=== PATIENT | male | born 1945 | race Caucasian/White ===

== ENCOUNTER 2022-05-23 13:05 | Outpatient (RCR) | payer MEDICARE, BC, SELFPAY ==
[2022-05-23 13:41] LABS: Albumin* 4.2 g/dL (3.3-5.0)
[2022-05-23 13:44] LABS: Aspartate Amino Transferase* 20 U/L (12-35); Bilirubin Direct* 0.2 mg/dL (0.0-0.5); Bilirubin Total* 0.7 mg/dL (0.1-1.5); Total Protein* 6.9 g/dL (6.0-8.3)
[2022-05-23 13:45] LABS: Alanine Aminotransferase* 13 U/L (4-50); Alkaline Phosphatase* 87 U/L (40-150)
[2022-12-19 18:04] LABS: Basophils Absolute Auto 0.03 K/uL (0.00-0.30); Basophils Percent Auto 0.4 % (0.0-3.0); Eosinophils Absolute Auto 0.16 K/uL (0.00-0.50); Eosinophils Percent Auto 2.1 % (0.0-7.0); Hematocrit 39.5 % (37.0-53.0); Hemoglobin* 13.2 gm/dL (13.5-17.5); Immature Granulocytes Abs Auto 0.13 K/uL (0.00-0.30); Immature Granulocytes Pct Auto 1.7 %; Lymphocytes Absolute Auto 2.03 K/uL (0.90-2.90); Lymphocytes Percent Auto 27.2 % (20-44); Mean Corpuscular HGB Conc 33 gm/dL (32-36); Mean Corpuscular Hemoglobin 32 pg (26-34); Mean Corpuscular Volume 95 fL (80-100); Monocytes Percent Auto 11.8 % (0.0-11.0); Neutrophils Absolute Auto 4.22 K/uL (1.7-7.0); Neutrophils Percent Auto 56.8 % (42.0-72.0); Platelet Count* 344 K/uL (140-440); RDW Coefficient of Variation % 12.2 % (11.5-15.5); Red Blood Count 4.17 m/uL (4.30-5.90); White Blood Count* 7.45 K/uL (4.50-11.00)
[2022-12-19 18:05] LABS: Albumin* 3.5 g/dL (3.3-5.0)
[2022-12-19 18:06] LABS: Chloride* 106 mmol/L (96-114); Potassium* 4.1 mmol/L (3.6-5.1); Sodium* 138 mmol/L (135-149)
[2022-12-19 18:08] LABS: Alkaline Phosphatase* 76 U/L (40-150); Aspartate Amino Transferase* 20 U/L (12-35); Bilirubin Total* 0.6 mg/dL (0.1-1.5); Carbon Dioxide* 26 mmol/L (20-32); Creatinine* 1.1 mg/dL (0.5-1.5); Estimated Glomerular Filt Rate 68 ml/min; Slide Review Reflex No
[2022-12-19 18:09] LABS: Alanine Aminotransferase* 15 U/L (4-50); Blood Urea Nitrogen* 23 mg/dL (7-30); Calcium* 9.2 mg/dL (8.4-10.6); Glucose* 90 mg/dL (60-115); Lactate Dehydrogenase* 194 U/L (120-246)
== END 2023-05-14 23:00 | disposition home or self-care (01) ==
LOC: LAB 13:05
PROVIDERS: Internal Medicine Hematology & Oncology; PCP Internal Medicine
DX: K74.3 Primary biliary cirrhosis (principal); C85.89 Other specified types of non-Hodgkin lymphoma, extranodal and solid organ sites
CPT/HCPCS: 36415; 80053; 80076; 83615; 85025

== ENCOUNTER 2022-05-23 13:08 | Outpatient (RCR) | payer MEDICARE, BC, SELFPAY ==
[2022-05-23 13:25] LABS: Basophils Absolute Auto 0.03 K/uL (0.00-0.30); Basophils Percent Auto 0.4 % (0.0-3.0); Eosinophils Absolute Auto 0.15 K/uL (0.00-0.50); Eosinophils Percent Auto 2.2 % (0.0-7.0); Hematocrit 42.2 % (37.0-53.0); Hemoglobin* 14.5 gm/dL (13.5-17.5); Immature Granulocytes Abs Auto 0.02 K/uL (0.00-0.30); Lymphocytes Absolute Auto 1.69 K/uL (0.90-2.90); Lymphocytes Percent Auto 24.4 % (20-44); Mean Corpuscular HGB Conc 34 gm/dL (32-36); Mean Corpuscular Hemoglobin 32 pg (26-34); Mean Corpuscular Volume 93 fL (80-100); Monocytes Percent Auto 7.2 % (0.0-11.0); Neutrophils Absolute Auto 4.55 K/uL (1.7-7.0); Neutrophils Percent Auto 65.5 % (42.0-72.0); Platelet Count* 270 K/uL (140-440); RDW Coefficient of Variation % 12.3 % (11.5-15.5); Red Blood Count 4.56 m/uL (4.30-5.90); White Blood Count* 6.94 K/uL (4.50-11.00)
[2022-05-23 13:32] LABS: Slide Review Reflex No
[2022-05-23 13:42] LABS: Chloride* 105 mmol/L (96-114)
[2022-05-23 13:43] LABS: Albumin* 4.2 g/dL (3.3-5.0); Potassium* 3.9 mmol/L (3.6-5.1); Sodium* 138 mmol/L (135-149)
[2022-05-23 13:45] LABS: Bilirubin Total* 0.6 mg/dL (0.1-1.5); Carbon Dioxide* 23 mmol/L (20-32); Creatinine* 1.1 mg/dL (0.5-1.5); Estimated Glomerular Filt Rate 68 ml/min; Total Protein* 7.3 g/dL (6.0-8.3)
[2022-05-23 13:46] LABS: Alanine Aminotransferase* 13 U/L (4-50); Alkaline Phosphatase* 87 U/L (40-150); Aspartate Amino Transferase* 20 U/L (12-35); Blood Urea Nitrogen* 21 mg/dL (7-30); Calcium* 9.2 mg/dL (8.4-10.6); Glucose* 126 mg/dL (60-115); Lactate Dehydrogenase* 445 U/L (313-618)
== END 2023-05-14 23:00 | disposition home or self-care (01) ==
LOC: LAB 13:08
PROVIDERS: PCP Internal Medicine; Visit Provider Internal Medicine Hematology & Oncology
DX: K74.3 Primary biliary cirrhosis (principal)
CPT/HCPCS: 36415; 80053; 80076; 83615; 85025

== ENCOUNTER 2022-06-17 17:27 | Emergency (ER) | payer MEDICARE, BC, SELFPAY ==
[2022-06-17 17:55] VITALS: BP 152/95; PULSE 72; RESP 20; O2SAT 97; BMI 30.8
--- NOTE | 2022-06-17 18:12 | ED.NURSE ---
[facility] police department called and informed of the incident. was given the address and accounting auditor of the dog, as noted in triage note.
--- NOTE | 2022-06-17 18:16 | ED_ITS ---
HPI - Animal Bite General Time Seen by Provider: 18:16 Date Seen: 06/17/22 Chief Complaint: Animal Bite Stated Complaint: DOG BITE - RIGHT HAND, RIGHT LEG Time Seen by Provider: 06/17/22 17:29 Source: patient and RN notes reviewed Mode of arrival: ambulatory Limitations: no limitations History of Present Illness HPI narrative: This 77-year-old male who is presenting just over 7 hours after dog bite injury. This was his neighbor's dog whom he is had for 4 years, they do not know if the dog is vaccinated in did not ask. They presumed it was. Patient was unsure of his tetanus status and we did look it up, up-to-date on 05/01/2018. Patient went over to say hi and went to pet the dog and it attacked him. It bit him in the right hand, has about 3 puncture wounds there that his did clean and bandage. He has a little bit more of a wound on the back of his right calf word bedtime. They describe this as a medium dog. Police have been called and will be here to interview, we will make sure that rabies is up-to-date on this dog via please. complaint: animal bite Related Data Patient tetanus UTD: Yes (05/01/2018) Previous Rx's Medication Instructions Recorded tamsulosin 0.4 mg capsule 0.4 mg PO QDAY #90 caps 05/08/22 amoxicillin 875 mg-potassium 1 tab PO BID #14 tabs 06/17/22 clavulanate 125 mg tablet Allergies Allergy/AdvReac Type Severity Reaction Status Date / Time No Known Drug Allergies Allergy Verified 06/17/22 17:54 Review of Systems Narrative: As per HPI [facility] PFS Surgical History (Updated 05/19/22 @ 22:09 by Mulu Dominguez APRN) S/P radiation therapy Social History Smoking Status: Never smoker Do you use any of these nicotine containing products: None Second hand tobacco smoke exposure: No How often do you have a drink containing alcohol: 4 or more times a week How many standard drinks containing alcohol do you have on a typical day: 1 or 2 How often do you have six or more drinks on one occasion: Never AUDIT-C Alcohol total score: 4 Non-prescribed substance use: denies use service: No Exam Const: Vital Signs, click to edit/add: Vital Signs - 24 hr 06/17/22 17:55 Pulse Rate [Pulse Oximeter] 72 Respiratory Rate 20 Blood Pressure [Ri ght Upper Arm] 152/95 H Pulse Oximetry 97 Oxygen Delivery Me thod Room Air Documenting provider has reviewed patient's vital signs: yes Common normals: no apparent distress, oriented x3, no limitations, healthy appearing and alert Extremity: Other: Bandage removed on the right hand. He has a few puncture wounds along the medial hand, none actively bleeding, no evidence of infection. On the posterior aspect of his right calf there is a flap of skin with some purplish discoloration around the border. Given that this is an animal bite and it is over 7 hours, feel that this is best left to heal with secondary intention. We will clean the area again and I will try to Steri-Strip the wound edges is close together as possible but leaving enough area for drainage. There are some scrapes and abrasions with teeth aguilar in this area. Neuro: Common normals: oriented x3 Sensorium/orientation: alert Gait (neuro): normal gait Course Reevaluation(s) Reevaluation #1: Placed Steri-Strips and benzoin on the calf wound to bring the skin edges closer together. Again, do not feel that this should be sutured. Time: 19:07 Vital Signs Vital signs: Initial Vital Signs Temperature Source Temporal Artery Scan 06/17/22 17:55 Pulse Rate 72 06/17/22 17:55 Pulse Rhythm 06/17/22 17:55 Respiratory Rate 20 06/17/22 17:55 Blood Pressure 152/95 H 06/17/22 17:55 Blood Pressure Mean 114 06/17/22 17:55 Blood Pressure Position Supine 06/17/22 17:55 Pulse Oximetry 97 06/17/22 17:55 Oxygen Delivery Method 06/17/22 17:55 Vital Signs Pulse Rate 72 06/17/22 17:55 Respiratory Rate 20 06/17/22 17:55 Blood Pressure 152/95 H 06/17/22 17:55 Pulse Oximetry 97 06/17/22 17:55 Oxygen Delivery Method 06/17/22 17:55 Pulse Rate 72 06/17/22 17:55 Respiratory Rate 20 06/17/22 17:55 Blood Pressure 152/95 H 06/17/22 17:55 Pulse Oximetry 97 06/17/22 17:55 Oxygen Delivery Method 06/17/22 17:55 Critical Care Time Critical Care Time Critical Care Time: No Discharge Plan Discharge Clinical Impression: Dog bite Patient Disposition: Home, Self-Care Condition: Stable Instructions: Animal Bite (ED), Rabies (ED) Additional Instructions: Make sure that the dog is vaccinated against rabies, contact her neighbor when you get home. If the dog is unvaccinated, please contact us for further recommendations. Bandage wounds as needed until healing. Can use some antibiotic ointment over the wounds on the hand. Allow the Steri-Strips on the calf to fall off on their own. If any of the areas are becoming more red, swollen, painful, developed low-grade fever with any of these symptoms, start antibiotic that was sent to the pharmacy. Need to watch wound closely for infection. Animal bites can be come infected easily. There is any question about the wounds at all, please have someone look at them. Activity Level: Activity as Tolerated Prescriptions: New amoxicillin-pot clavulanate 875-125 mg tablet 1 tab PO BID Qty: 14 0RF No Action tamsulosin 0.4 mg capsule 0.4 mg PO QDAY Qty: 90 2RF Follow Up/Referrals: Estiven Smyth MD [Primary Care Provider] - Stand Alone Forms: [employer] Info Instructions
--- NOTE | 2022-06-17 19:23 | ED.NURSE ---
Wounds were irrigated with irrigation solution and wound cleanser applied. Bacitracin and non-adhesive gauze placed over open areas and punctures. Right Calf laceration approximated with steri-strips and wrapped with loose gauze.
== END 2022-06-17 19:27 | disposition home or self-care (01) ==
PROVIDERS: Emergency Provider Family Medicine; PCP Internal Medicine
DX: S81.831A Puncture wound without foreign body, right lower leg, initial encounter (principal); S61.431A Puncture wound without foreign body of right hand, initial encounter; W54.0XXA Bitten by dog, initial encounter
CPT/HCPCS: 99283; 99284

== ENCOUNTER 2022-08-17 08:13 | Outpatient (CLI) | payer MEDICARE, BC, SELFPAY ==
--- NOTE | 2022-08-17 08:15 | CRLHL7_ITS ---
For Patients: As a result of the Century Cures Act, medical imaging exams and procedure reports are released immediately into your electronic medical record. You may view this report before your referring provider. If you have questions, please contact your health care provider. INDICATION: Follow-up primary SENIOR DEVELOPER lymphoma. TECHNIQUE: Brain MRI with contrast. The following sequences were obtained: Sagittal T1 weighted sequence. DWI and ADC mapping sequences. 3D T2 and FLAIR sequences. T1 weighted post-contrast sequence(s). 15 cc of Dotarem gadolinium based contrast agent was used. COMPARISON: Brain MRI from 04/04/2022. FINDINGS: New enhancing curvilinear focus within the right posterior inferior temporal lobe, series 10/03. Enhancing lesion previously seen within the left mesial temporal lobe/amygdala has almost completely resolved. Postsurgical changes of right occipital craniotomy with subjacent surgical tract present within the superior occipital/inferior parietal region. Mild T1 shortening/hemosiderin staining, gliosis and volume loss within this region reflecting postprocedural change. No evidence of acute ischemia. Right anterior temporal and anterior inferior frontal encephalomalacia/gliosis, likely post ischemic/post treatment in etiology. Confluent FLAIR hyperintensity involving the corpus callosum splenium and peritrigonal white matter, also compatible with post treatment change. Scattered FLAIR intensities within the supratentorial white matter elsewhere, typical for chronic microvascular ischemic change. No hydrocephalus or extra-axial collections. The pituitary gland, parasellar structures and optic chiasm are normal. All the major intracranial vascular structures demonstrate normal flow-related signal. The orbital contents are normal. No calvarial or skull base marrow signal abnormality. No obstructive sinus disease. No extracranial soft tissue findings. IMPRESSION: 1. New small curvilinear enhancing lesion within the right posterior inferior temporal lobe, suspicious for a new site of active lymphoma. Other considerations include a subacute infarct or posttreatment sequela. Attention on follow-up recommended. 2. Previously seen enhancing lesion within the left anterior/medial temporal lobe has resolved. 3. Otherwise stable postsurgical/post treatment changes detailed above. Dictated by He Escalante MD @ 08/17/2022 3:37:16 PM (Electronically Signed)
== END 2022-08-17 08:14 | disposition home or self-care (01) ==
LOC: MRI 08:14
PROVIDERS: PCP Internal Medicine; Visit Provider Obstetrics & Gynecology
DX: C85.89 Other specified types of non-Hodgkin lymphoma, extranodal and solid organ sites (principal); G93.9 Disorder of brain, unspecified
CPT/HCPCS: 70553; A9575

== ENCOUNTER 2022-08-22 12:46 | Outpatient (RCR) | payer MEDICARE, BC, SELFPAY ==
[2022-08-22 13:02] LABS: Basophils Absolute Auto 0.03 K/uL (0.00-0.30); Basophils Percent Auto 0.4 % (0.0-3.0); Eosinophils Absolute Auto 0.13 K/uL (0.00-0.50); Eosinophils Percent Auto 1.8 % (0.0-7.0); Hematocrit 40.6 % (37.0-53.0); Hemoglobin* 13.7 gm/dL (13.5-17.5); Immature Granulocytes Abs Auto 0.06 K/uL (0.00-0.30); Immature Granulocytes Pct Auto 0.8 %; Lymphocytes Percent Auto 17.8 % (20-44); Mean Corpuscular HGB Conc 34 gm/dL (32-36); Mean Corpuscular Hemoglobin 32 pg (26-34); Mean Corpuscular Volume 94 fL (80-100); Monocytes Percent Auto 10.1 % (0.0-11.0); Neutrophils Absolute Auto 4.93 K/uL (1.7-7.0); Neutrophils Percent Auto 69.1 % (42.0-72.0); Platelet Count* 258 K/uL (140-440); RDW Coefficient of Variation % 12.2 % (11.5-15.5); Red Blood Count 4.32 m/uL (4.30-5.90); White Blood Count* 7.14 K/uL (4.50-11.00)
[2022-08-22 13:07] LABS: Slide Review Reflex No
== END 2022-11-19 23:59 | disposition home or self-care (01) ==
LOC: CCIC 12:46
PROVIDERS: PCP Internal Medicine; Visit Provider Internal Medicine
DX: C85.89 Other specified types of non-Hodgkin lymphoma, extranodal and solid organ sites (principal)
CPT/HCPCS: 36415; 85025

== ENCOUNTER 2023-01-18 16:03 | Outpatient (REF) | payer MEDICARE, BC, SELFPAY ==
[2023-01-18 17:20] LABS: Basophils Percent Auto 0.6 % (0.0-3.0); Eosinophils Percent Auto 3.2 % (0.0-7.0); Hematocrit 41.5 % (37.0-53.0); Hemoglobin* 13.6 gm/dL (13.5-17.5); Immature Granulocytes Pct Auto 0.6 %; Lymphocytes Percent Auto 27.4 % (20-44); Mean Corpuscular HGB Conc 33 gm/dL (32-36); Mean Corpuscular Hemoglobin 31 pg (26-34); Mean Corpuscular Volume 94 fL (80-100); Monocytes Percent Auto 12.8 % (0.0-11.0); Neutrophils Percent Auto 55.4 % (42.0-72.0); Platelet Count* 259 K/uL (140-440); RDW Coefficient of Variation % 12.6 % (11.5-15.5); White Blood Count* 8.43 K/uL (4.50-11.00)
[2023-01-18 17:21] LABS: Basophils Absolute Auto 0.05 K/uL (0.00-0.30); Eosinophils Absolute Auto 0.27 K/uL (0.00-0.50); Immature Granulocytes Abs Auto 0.05 K/uL (0.00-0.30); Lymphocytes Absolute Auto 2.31 K/uL (0.90-2.90); Neutrophils Absolute Auto 4.67 K/uL (1.7-7.0); Slide Review Reflex No
[2023-01-18 17:29] LABS: Albumin* 3.7 g/dL (3.3-5.0); Chloride* 104 mmol/L (96-114)
[2023-01-18 17:30] LABS: Potassium* 4.7 mmol/L (3.6-5.1); Sodium* 137 mmol/L (135-149)
[2023-01-18 17:32] LABS: Bilirubin Total* 0.8 mg/dL (0.1-1.5); Creatinine* 1.1 mg/dL (0.5-1.5); Estimated Glomerular Filt Rate 68 ml/min
[2023-01-18 17:33] LABS: Alanine Aminotransferase* 22 U/L (4-50); Aspartate Amino Transferase* 21 U/L (12-35); Blood Urea Nitrogen* 23 mg/dL (7-30); Calcium* 9.3 mg/dL (8.4-10.6); Carbon Dioxide* 28 mmol/L (20-32); Glucose* 98 mg/dL (60-115); Total Protein* 6.3 g/dL (6.0-8.3)
[2023-01-18 20:48] LABS: Alkaline Phosphatase* 78 U/L (40-150)
== END 2023-01-18 16:04 | disposition home or self-care (01) ==
LOC: NPINS 16:03
PROVIDERS: PCP Internal Medicine; Visit Provider Internal Medicine Hematology & Oncology
DX: C85.89 Other specified types of non-Hodgkin lymphoma, extranodal and solid organ sites (principal)
CPT/HCPCS: 80053; 85025

== ENCOUNTER 2023-04-24 18:40 | Inpatient (IN) | payer MEDICARE, BC, SELFPAY ==
[2023-04-24 18:48] VITALS: BP 160/84; PULSE 73; RESP 16; TEMP 36.6; O2SAT 96; BMI 30.3
--- NOTE | 2023-04-24 19:11 | ED_ITS ---
HPI - General Adult General Chief complaint: Altered Mental Status Stated complaint: Confusion, fatigue Time Seen by Provider: 04/24/23 19:10 History of Present Illness HPI narrative: Diagnosed with DIGITAL ADVERTISING ANALYST lymphoma several years ago. Had been on treatment for it previously. Over the last few days notes increase in confusion and sleeping much of the day . Pt wobbly walking to triage room with 's help. Pt has been staying well hydrated per his and 's report. Has MRI scheduled for Sunday this week 78-year-old man presenting to the emergency department with spouse with concern of increased weakness and generally little wobbliness, increasingly confused and sleeping a lot over the last 2 days or so. No fever. No cough or cold symptoms. No abdominal pain. No rashes. Indicates some bruising that he would associate with oral chemotherapy. No complaint of headache or visual changes. Has a history of DIGITAL ADVERTISING ANALYST lymphoma and is pending an MRI of the brain in about 8 days. Says he makes a good point to stay well-hydrated drinking lot of water over the course of the day. Spouse is concerned that maybe his lymphoma is progressing. No dysuria, no frequency. Began ibrutinib in November of this year. Related Data Home Medications Medication Instructions Recorded Confirmed amlodipine 5 mg tablet 5 mg PO DAILY 04/24/23 04/24/23 ibrutinib 560 mg tablet 560 mg PO DAILY 04/24/23 04/24/23 pantoprazole 40 mg tablet,delayed 40 mg PO DAILY 04/24/23 04/24/23 release ursodiol 500 mg tablet 500 mg PO BID 04/24/23 04/24/23 ascorbic acid (vitamin C) 500 mg 500 mg PO DAILY 04/25/23 04/25/23 tablet cholecalciferol (vitamin D3) 50 50 mcg PO DAILY 04/25/23 04/25/23 mcg (2,000 unit) tablet (Vitamin D3) fluticasone propionate 50 1 spray intranasal DAILY 04/25/23 04/25/23 mcg/actuation nasal spray,suspension (24 Hour Allergy Relief) metoprolol succinate 100 mg 100 mg PO DAILY 04/25/23 04/25/23 tablet,extended release 24 hr tamsulosin 0.4 mg capsule 0.4 mg PO DAILY 04/25/23 04/25/23 Allergies Allergy/AdvReac Type Severity Reaction Status Date / Time No Known Drug Allergies Allergy Verified 04/24/23 18:57 Review of Systems Status of ROS: Reports: 6 or more systems reviewed and unremarkable except as noted in History and below PFSH [facility] Medical History Status post stereotactic brain biopsy ?Z98.890 - Other specified postprocedural states (ICD-10) BPH (benign prostatic hyperplasia) ?N40.0 - Benign prostatic hyperplasia without lower urinary tract symptoms (ICD-10) Biliary cirrhosis ?K74.5 - Biliary cirrhosis, unspecified (ICD-10) Obesity ?E66.9 - Obesity, unspecified (ICD-10) Impairment of balance ?R26.89 - Other abnormalities of gait and mobility (ICD-10) Physical deconditioning ?R53.81 - Other malaise (ICD-10) Cognitive impairment ?R41.89 - Other symptoms and signs involving cognitive functions and awareness (ICD-10) DIGITAL ADVERTISING ANALYST lymphoma ?C85.89 - Other specified types of non-Hodgkin lymphoma, extranodal and solid organ sites (ICD-10) Surgical History H/O nasal polypectomy ?Z98.890 - Other specified postprocedural states (ICD-10) ?Z87.09 - Personal history of other diseases of the respiratory system (ICD- 10) H/O blepharoplasty ?Z98.890 - Other specified postprocedural states (ICD-10) H/O colonoscopy ?Z98.890 - Other specified postprocedural states (ICD-10) S/P radiation therapy ?Z92.3 - Personal history of irradiation (ICD-10) Family History (Updated 04/24/23 @ 22:58 by Kenji De Dios MD) Father COPD (chronic obstructive pulmonary disease) Brother Prostate cancer Other Heart disease Social History (Updated 04/24/23 @ 22:58 by Kenji De Dios MD) Narrative: He lives in [place] with his . They live in their own home. He ambulates without a walker. He does not smoke. Drinks alcohol a couple times a week. Code status is on certain at this time. 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 What is your current living situation?: I presently have a place to live Problems where you live: no known problems Problems where you live details: none In the past 12 months, utilities in danger of being shut off: no In the past 12 mos, have been you worried that your food would run out before you had money to buy more?: never true In the past 12 mos, the food you bought just didn't last and you didn't have money to buy more?: never true Smoking Status: Never smoker Do you use any of these nicotine containing products: None Second hand tobacco smoke exposure: No How often do you have a drink containing alcohol: 2-4 times a month Alcohol type: beer How many standard drinks containing alcohol do you have on a typical day: 1 or 2 How often do you have six or more drinks on one occasion: Never AUDIT-C Alcohol total score: 2 Non-prescribed substance use: denies use Caffeine: Yes (Coffee) How often does anyone, including family, friends and others, physically hurt you : never How often does anyone, including family, friends and others, insult or talk down to you: never How often does anyone, including family, friends and others, threaten you with harm: never How often does anyone, including family, friends and others, scream or curse at you: never service: No Exam Narrative: Exam Narrative: Does seem a little sleepy. Demonstrates some mild confusion. Answers questions fairly easily though. Cranial nerves 2-12 to be intact. Breathing easily. Moving all extremities without difficulty. Is well perfused. Without lower extremity edema. Head looks to be atraumatic. Lungs are clear. Does need a little assistance to the sit for that exam. Heart with regular rate and rhythm. Abdomen is soft overweight nontender. I do not appreciate masses. Skin with some light bruising most notable in forearms. Oropharynx is moist. Fissured tongue. Const: Vital Signs, click to edit/add: Vital Signs - 24 hr 04/24/23 18:48 04/24/23 21:20 Temperature 97.9 F Pulse Rate [Pulse Oximeter] 73 Respiratory Rate 16 18 Blood Pressure [Ri ght Upper Arm] 160/84 H 179/90 H Pulse Oximetry 96 99 Oxygen Delivery Me thod Room Air Room Air Documenting provider has reviewed patient's vital signs: yes Course Course Hospital Course: HOSPITALIST DISCHARGE SUMMARY ATTENDING PHYSICIAN: Bhargavi Tejada MD FINAL DIAGNOSIS: Acute hyponatremia Mild hypokalemia Mild hypo magnesemia HOSPITAL FOLLOWUP ISSUES: [facility] and radiological followup REFERRALS WHILE ADMITTED: Phone discussion with [facility] REFERRALS AFTER DISCHARGE: Outpatient PT and OT BRIEF HOSPITAL COURSE: 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 Was evaluated the emergency room on 04/24/2023 for increasing weakness, confusion. He was noted to have a sodium of 127. He had a mildly depressed potassium and magnesium as well. These were replaced and he was placed on a fluid restriction. Overnight he improved. Sodium this morning is 130. He remains pleasantly confused. PT and OT worked with him and his balance and general mobility is not great but is not overly limiting. I spoke with his oncology team this morning. We are going to dose reduce his chemotherapy to 420 mg daily from 560 mg. He will see them after his brain MRI next week. SUBSTANTIVE NOTATIONS ON IMAGING, LAB, MICROBIOLOGY/PATHOLOGY STUDIES: On admission his sodium was 127, improved to 130 Potassium 3.5, 3.5 this morning Magnesium 1.4, 1.8 this morning Slight white count without fever. Total WBC 11.2 Troponin was negative on admission as was his C reactive protein. BNP 502 Urine was reassuring. Respiratory screen negative Chest x-ray no focal consolidation, chronic fibrotic changes. DISCHARGE MEDICATIONS: See Reconciled list - SIGNIFICANT CHANGES: Dose reduction of ibrutinib 560 to 420mg PO daily. REVIEW OF SYSTEMS No new chest pain or dyspnea Pain controlled No voiding difficulties Tolerating diet challenge PHYSICAL EXAM: CONSTITUTIONAL: Pleasantly confused VITAL SIGNS: see record. HEENT: Normocephalic, atraumatic. PERRL, EOMI, conjunctivae pink, no scleral icterus. Ears and nose externally normal. Pharynx normal. NECK: No JVD. No carotid bruit, no thyromegaly, no adenopathy. CHEST: Clear to auscultation bilaterally. HEART: S1 and S2 normal. Edema ABDOMEN: Soft, nontender. Normal bowel sounds. MUSCULOSKELETAL: No gross joint deformity or swelling. NEURO: Cranial nerves intact. Grossly intact. No asymmetric findings. SKIN: No rashes, petechiae, concerning changes PSYCHIATRIC: Mood euthymic. DISPOSITION: Home with Close follow-up with [place] [facility] Time spent on discharge 37 minutes. Vital Signs Vital signs: Initial Vital Signs Temperature 97.9 F 04/24/23 18:48 Temperature Source Temporal Artery Scan 04/24/23 18:48 Pulse Rate 73 04/24/23 18:48 Respiratory Rate 16 04/24/23 18:48 Blood Pressure 160/84 H 04/24/23 18:48 Blood Pressure Mean 109 H 04/24/23 18:48 Blood Pressure Position Sitting 04/24/23 18:48 Pulse Oximetry 96 04/24/23 18:48 Oxygen Delivery Method Room Air 04/24/23 18:48 Vital Signs Temperature 97.9 F 04/24/23 18:48 Pulse Rate 73 04/24/23 18:48 Respiratory Rate 16 04/24/23 18:48 Blood Pressure 160/84 H 04/24/23 18:48 Pulse Oximetry 96 04/24/23 18:48 Oxygen Delivery Method Room Air 04/24/23 18:48 Temperature 97.9 F 04/25/23 12:52 Pulse Rate 70 04/25/23 11:23 Respiratory Rate 16 04/25/23 12:52 Blood Pressure 185/87 H 04/25/23 11:23 Pulse Oximetry 97 04/25/23 11:23 Oxygen Delivery Method Room Air 04/25/23 11:23 Medical Decision Making MDM Narrative Medical decision making narrative: Certainly could be progression of this lymphoma though I think would look further for infection or electrolyte abnormalities; might be a dilutional hyponatremia from too much water intake. Medication reaction/side effect? Initiated on IV fluids with normal saline. Chest x-ray reviewed by me in seems to show some increased interstitial markings but no infiltrative process. White count little bit elevated 11.2 neutrophilic predominance. EKG as below. Sodium is 127. Was 137 3 months ago. Urinalysis without evidence of infection. Not particularly dilute. There is 1+ urine protein and ketones. Alcohol level is negative. Clarifying water consumption, indicates that he drinks about 2 L of water daily. Uncertain progression of lunchroom mother lymphoma might be contributing. Unclear also if hyponatremia is the cause of his weakness. I did discuss this case with hospitalist considering also outpatient plan. During this conversation with Mr. Steele to discuss his options, and now with arrival of his daughter, he became tearful. Clearly preference is to stay in this hospital as opposed to outpatient. Will discuss further with hospitalist. Uncertain MRI availability tomorrow. Medical Records Medical records reviewed: Yes I reviewed the patient's medical records Lab Data Lab results reviewed: Yes I reviewed the patient's lab results Labs: Lab Results 04/24/23 04/24/23 04/24/23 Range/Units 19:35 20:09 20:37 WBC 11.20 H (4.50-11.00) K/uL RBC 4.46 (4.30-5.90) m/uL Hgb 13.8 (13.5-17.5) gm/dL Hct 40.1 (37.0-53.0) % MCV 90 (80-100) fL MCH 31 (26-34) pg MCHC 34 (32-36) gm/dL RDW Coeff of Jacque 12.3 (11.5-15.5) % Plt Count 228 (140-440) K/uL Neut % (Auto) 79.9 H (42.0-72.0) % Lymph % (Auto) 12.0 L (20-44) % Hayes % (Auto) 7.6 (0.0-11.0) % Eos % (Auto) 0.0 (0.0-7.0) % Baso % (Auto) 0.1 (0.0-3.0) % Neut # (Auto) 8.90 H (1.7-7.0) K/uL Lymph # (Auto) 1.30 (0.90-2.90) K/uL Hayes # (Auto) 0.90 (0.00-0.90) K/UL Eos # (Auto) 0.00 (0.00-0.50) K/uL Baso # (Auto) 0.00 (0.00-0.30) K/uL Abs Immat Gran (auto) 0.00 (0.00-0.30) K/uL Imm/Tot Granulo (auto) 0.4 % Sodium 127 L (135-149) mmol/L Potassium 3.5 L (3.6-5.1) mmol/L Chloride 99 (96-114) mmol/L Carbon Dioxide 22 (20-32) mmol/L BUN 22 (7-30) mg/dL Creatinine 0.9 (0.5-1.5) mg/dL Estimated Creat Clear 58.92 Estimated GFR 86 ml/min Glucose 107 (60-115) mg/dL Calcium 8.5 (8.4-10.6) mg/dL Magnesium 1.4 L (1.5-2.6) mg/dL Total Bilirubin 0.8 (0.1-1.5) mg/dL Direct Bilirubin 0.2 (0.0-0.5) mg/dL AST 19 (12-35) U/L ALT 17 (4-50) U/L Alkaline Phosphatase 66 (40-150) U/L Troponin I < 0.01 L (0.01-0.04) ng/mL C-Reactive Protein < 0.5 L (0.5-1.0) mg/dL NT-Pro-B Natriuret Pep 502 pg/mL Total Protein 5.7 L (6.0-8.3) g/dL Albumin 3.4 (3.3-5.0) g/dL Urine Color Yellow (Yellow) Urine Appearance Clear (Clear) Urine pH 5.5 (5.0-8.5) Ur Specific [place] 1.025 (1.000-1.030) Urine Protein 1+ A (Negative) Urine Glucose (UA) Negative (Negative) Urine Ketones 1+ A (Negative) Urine Blood Trace-intact A (Negative) Urine Nitrite Negative (Negative) Urine Bilirubin Negative (Negative) Urine Urobilinogen 1.0 (0.2-1.0) Ur Leukocyte Esterase Negative (Negative) Urine RBC 0-2 (0-2) Urine WBC 0-2 (0-5) Ur Squamous Epith Cells None (None-Few) Urine Bacteria None (None) Ethyl Alcohol < 0.01 L (0.01-0.03) % SARS-CoV-2 (PCR) Negative SARS-CoV-2 (Negative) Influenza Type A (PCR) Negative PCR FLU A (Negative) Influenza Type B (PCR) Negative PCR FLU B (Negative) RSV (PCR) Negative PCR RSV (Negative) 04/25/23 Range/Units 06:05 WBC (4.50-11.00) K/uL RBC (4.30-5.90) m/uL Hgb (13.5-17.5) gm/dL Hct (37.0-53.0) % MCV (80-100) fL MCH (26-34) pg MCHC (32-36) gm/dL RDW Coeff of Jacque (11.5-15.5) % Plt Count (140-440) K/uL Neut % (Auto) (42.0-72.0) % Lymph % (Auto) (20-44) % Hayes % (Auto) (0.0-11.0) % Eos % (Auto) (0.0-7.0) % Baso % (Auto) (0.0-3.0) % Neut # (Auto) (1.7-7.0) K/uL Lymph # (Auto) (0.90-2.90) K/uL Hayes # (Auto) (0.00-0.90) K/UL Eos # (Auto) (0.00-0.50) K/uL Baso # (Auto) (0.00-0.30) K/uL Abs Immat Gran (auto) (0.00-0.30) K/uL Imm/Tot Granulo (auto) % Sodium 130 L (135-149) mmol/L Potassium 3.5 L (3.6-5.1) mmol/L Chloride 102 (96-114) mmol/L Carbon Dioxide 21 (20-32) mmol/L BUN 18 (7-30) mg/dL Creatinine 0.9 (0.5-1.5) mg/dL Estimated Creat Clear 58.92 Estimated GFR 86 ml/min Glucose 127 H (60-115) mg/dL Calcium 8.5 (8.4-10.6) mg/dL Magnesium 1.8 (1.5-2.6) mg/dL Total Bilirubin (0.1-1.5) mg/dL Direct Bilirubin (0.0-0.5) mg/dL AST (12-35) U/L ALT (4-50) U/L Alkaline Phosphatase (40-150) U/L Troponin I (0.01-0.04) ng/mL C-Reactive Protein (0.5-1.0) mg/dL NT-Pro-B Natriuret Pep pg/mL Total Protein (6.0-8.3) g/dL Albumin (3.3-5.0) g/dL Urine Color (Yellow) Urine Appearance (Clear) Urine pH (5.0-8.5) Ur Specific [place] (1.000-1.030) Urine Protein (Negative) Urine Glucose (UA) (Negative) Urine Ketones (Negative) Urine Blood (Negative) Urine Nitrite (Negative) Urine Bilirubin (Negative) Urine Urobilinogen (0.2-1.0) Ur Leukocyte Esterase (Negative) Urine RBC (0-2) Urine WBC (0-5) Ur Squamous Epith Cells (None-Few) Urine Bacteria (None) Ethyl Alcohol (0.01-0.03) % SARS-CoV-2 (PCR) (Negative) Influenza Type A (PCR) (Negative) Influenza Type B (PCR) (Negative) RSV (PCR) (Negative) ECG Data Attestation: I personally reviewed and interpreted this ECG as follows: (Normal sinus rate of 66) Discharge Plan Discharge Clinical Impression: Hyponatremia, Weakness, AMS (altered mental status) Activity Level: Activity as Tolerated Discharge Diet: Regular
--- NOTE | 2023-04-24 19:25 | CRLHL7_ITS ---
For Patients: As a result of the Century Cures Act, medical imaging exams and procedure reports are released immediately into your electronic medical record. You may view this report before your referring provider. If you have questions, please contact your health care provider. INDICATION: Fatigue. TECHNIQUE: Chest 1 view(s) COMPARISON: None available. FINDINGS: Vascular port is present within the right chest wall, tip is in the lower SVC. Cardiomediastinal silhouette and pulmonary vasculature are normal. Prominence of the interstitial markings bilaterally, relatively symmetric, likely reflective of chronic fibrotic or senescent changes. Differential includes mild interstitial edema. No superimposed focal consolidation. No significant layering pleural effusion, no definite pneumothorax. No acute chest wall abnormality. IMPRESSION: 1. No focal consolidation. 2. Prominence of the interstitial markings bilaterally, likely reflective of chronic fibrotic changes. Differential includes mild interstitial edema. Dictated by Cony Reeder MD @ 04/24/2023 8:42:31 PM (Electronically Signed)
[2023-04-24] MEDS: 0.9 % SODIUM CHLORIDE 1000 ml 1,000 ML IV (20:05)
[2023-04-24 20:17] LABS: Basophils Percent Auto 0.1 % (0.0-3.0); Hematocrit 40.1 % (37.0-53.0); Hemoglobin* 13.8 gm/dL (13.5-17.5); Immature Granulocytes Pct Auto 0.4 %; Mean Corpuscular HGB Conc 34 gm/dL (32-36); Mean Corpuscular Hemoglobin 31 pg (26-34); Mean Corpuscular Volume 90 fL (80-100); Monocytes Percent Auto 7.6 % (0.0-11.0); Neutrophils Percent Auto 79.9 % (42.0-72.0); Platelet Count* 228 K/uL (140-440); RDW Coefficient of Variation % 12.3 % (11.5-15.5); Red Blood Count 4.46 m/uL (4.30-5.90)
[2023-04-24 20:23] LABS: Slide Review Reflex No
[2023-04-24 20:31] LABS: Chloride* 99 mmol/L (96-114); Potassium* 3.5 mmol/L (3.6-5.1); Sodium* 127 mmol/L (135-149)
[2023-04-24 20:34] LABS: Creatinine* 0.9 mg/dL (0.5-1.5); Est. Creatinine Clearance* 58.92; Estimated Glomerular Filt Rate 86 ml/min
[2023-04-24 20:35] LABS: Blood Urea Nitrogen* 22 mg/dL (7-30); Calcium* 8.5 mg/dL (8.4-10.6); Carbon Dioxide* 22 mmol/L (20-32); Glucose* 107 mg/dL (60-115)
[2023-04-24 20:38] LABS: C Reactive Protein* < 0.5 mg/dL (0.5-1.0)
[2023-04-24 20:44] LABS: Appearance Urine Clear (Clear); Bilirubin Urine Negative (Negative); Blood Urine Trace-intact (Negative); Color Urine Yellow (Yellow); Glucose Urine Negative (Negative); Ketones Urine 1+ (Negative); Leukocyte Esterase Urine Negative (Negative); Nitrite Urine Negative (Negative); Protein Urine 1+ (Negative); Specific Gravity Urine 1.025 (1.000-1.030); pH Urine 5.5 (5.0-8.5)
[2023-04-24 20:55] LABS: RBC Urine 0-2 (0-2); WBC Urine 0-2 (0-5)
[2023-04-24 20:56] LABS: Ethanol* < 0.01 % (0.01-0.03); Troponin I* < 0.01 ng/mL (0.01-0.04)
[2023-04-24 21:20] VITALS: BP 179/90; RESP 18; O2SAT 99
[2023-04-24 21:27] LABS: PCR FLU A Negative PCR FLU A (Negative); PCR FLU B Negative PCR FLU B (Negative); PCR RSV Negative PCR RSV (Negative)
[2023-04-24 21:42] LABS: SARS PCR* Negative SARS-CoV-2 (Negative)
[2023-04-24 21:45] LABS: Albumin* 3.4 g/dL (3.3-5.0)
[2023-04-24 21:48] LABS: Aspartate Amino Transferase* 19 U/L (12-35); Bilirubin Direct* 0.2 mg/dL (0.0-0.5); Bilirubin Total* 0.8 mg/dL (0.1-1.5); Magnesium* 1.4 mg/dL (1.5-2.6); Total Protein* 5.7 g/dL (6.0-8.3)
[2023-04-24 21:49] LABS: Alanine Aminotransferase* 17 U/L (4-50); Alkaline Phosphatase* 66 U/L (40-150)
[2023-04-24 22:04] LABS: NT Pro B Type NatriureticPept* 502 pg/mL
--- NOTE | 2023-04-24 22:05 | P.IMHP_ITS ---
Hospitalist- H&P: HPI History of Present Illness Date Seen: 04/24/23 Chief complaint: Confusion, fatigue Narrative: Luis Steele is a 78 year old male with UPHOLSTERY TECHNICIAN lymphoma, biliary cirrhosis, hypertension and BPH admitted through the emergency department with recent increase in weakness and confusion. Family is noted he is sleeping a lot over last 2 days. He has had acute on chronic decline with more forgetfulness and confusion. He is weaker and more unsteady on his feet. He has not had a fall or head injury. He does not use assistive device when he walks. He does tell me that he is walking less because he is concerned he will get lost when he is out for a walk. He is quite aware of his forgetfulness. He has UPHOLSTERY TECHNICIAN lymphoma which has been treated with radiation and chemotherapy with methotrexate and now ibrutinib. MRI of the brain done February 24 suggests progression of the disease. Repeat MRI is due next week. Review of Systems Narrative: Patient reports no other recent illness or injury. Specifically denies headache, cold, cough, sore throat, shortness of breath, chest pain, abdominal pain, nausea, vomiting, diarrhea, constipation, blood in the stool, urinary problems, focal weakness or numbness or visual disturbance. [facility] Medical History Status post stereotactic brain biopsy ?Z98.890 - Other specified postprocedural states (ICD-10) BPH (benign prostatic hyperplasia) ?N40.0 - Benign prostatic hyperplasia without lower urinary tract symptoms (ICD-10) Biliary cirrhosis ?K74.5 - Biliary cirrhosis, unspecified (ICD-10) Obesity ?E66.9 - Obesity, unspecified (ICD-10) Impairment of balance ?R26.89 - Other abnormalities of gait and mobility (ICD-10) Physical deconditioning ?R53.81 - Other malaise (ICD-10) Cognitive impairment ?R41.89 - Other symptoms and signs involving cognitive functions and a wareness (ICD-10) UPHOLSTERY TECHNICIAN lymphoma ?C85.89 - Other specified types of non-Hodgkin lymphoma, extranodal and solid organ sites (ICD-10) Surgical History H/O nasal polypectomy ?Z98.890 - Other specified postprocedural states (ICD-10) ?Z87.09 - Personal history of other diseases of the respiratory system (ICD- 10) H/O blepharoplasty ?Z98.890 - Other specified postprocedural states (ICD-10) H/O colonoscopy ?Z98.890 - Other specified postprocedural states (ICD-10) S/P radiation therapy ?Z92.3 - Personal history of irradiation (ICD-10) Family History (Updated 04/24/23 @ 22:58 by Kenji De Dios MD) Father COPD (chronic obstructive pulmonary disease) Brother Prostate cancer Other Heart disease Social History (Updated 04/24/23 @ 22:58 by Kenji De Dios MD) Narrative: He lives in [place] with his . They live in their own home. He ambulates without a walker. He does not smoke. Drinks alcohol a couple times a week. Code status is on certain at this time. is healthcare power of workers compensation attorney. Smoking Status: Never smoker Do you use any of these nicotine containing products: None Second hand tobacco smoke exposure: No How often do you have a drink containing alcohol: 4 or more times a week How many standard drinks containing alcohol do you have on a typical day: 1 or 2 How often do you have six or more drinks on one occasion: Never AUDIT-C Alcohol total score: 4 Non-prescribed substance use: denies use service: No Meds Home Medications and Allergies Home Medications Medication Instructions Recorded Confirmed Type amlodipine 5 mg tablet 5 mg PO DAILY 04/24/23 04/24/23 History ibrutinib 560 mg tablet 560 mg PO DAILY 04/24/23 04/24/23 History pantoprazole 40 mg tablet,delayed 40 mg PO DAILY 04/24/23 04/24/23 History release ursodiol 500 mg tablet 500 mg PO BID 04/24/23 04/24/23 History Home Medication Comments: helps set up and administer medicines Allergies Allergy/AdvReac Type Severity Reaction Status Date / Time No Known Drug Allergies Allergy Verified 04/24/23 18:57 Exam Narrative: Exam Narrative: He is alert and appears in no distress. Speech is normal. He struggles to answer simple questions. He struggles to remember significant portions of his past medical history. Head is without trauma. Eyes normal. Extraocular movements are full. Visual reed are intact. There is no facial asymmetry. Oropharynx is normal. Tongue is midline. Neck is supple without mass or adenopathy. Respirations are clear to auscultation. Cardiovascular: S1, S2, regular rate and rhythm. No murmur gallop or rub. Abdomen: Bowel sounds active. Abdomen is soft without tenderness or mass. External genitalia normal. Upper extremities are normal with good pulses and intact sensation. 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 Lower extremity examination shows he has some edema. Intact pedal pulses. Strength testing shows 5/5 strength in hip flexion, knee flexion and extension, ankle dorsiflexion and plantar flexion. [id number] and heel- lovelace testing is normal. Const: Vital Signs, click to edit/add: Vital Signs - 24 hr 04/24/23 18:48 04/24/23 21:20 Temperature 97.9 F Pulse Rate [Pulse Oximeter] 73 Respiratory Rate 16 18 Blood Pressure [Ri ght Upper Arm] 160/84 H 179/90 H Pulse Oximetry 96 99 Oxygen Delivery Me thod Room Air Room Air Documenting provider has reviewed patient's vital signs: yes Hospitalist - H&P: Result Labs Labs: Short CBC 04/24/23 Range/Units 20:09 WBC 11.20 H (4.50-11.00) K/uL Hgb 13.8 (13.5-17.5) gm/dL Hct 40.1 (37.0-53.0) % Plt Count 228 (140-440) K/uL BMP 04/24/23 20:09 Sodium 127 L Potassium 3.5 L Chloride 99 Carbon Dioxide 22 BUN 22 Creatinine 0.9 Glucose 107 Calcium 8.5 Cardiac Enzymes 04/24/23 Range/Units 20:09 Troponin I < 0.01 L (0.01-0.04) ng/mL Liver Function 04/24/23 Range/Units 20:09 Total Bilirubin 0.8 (0.1-1.5) mg/dL Direct Bilirubin 0.2 (0.0-0.5) mg/dL AST 19 (12-35) U/L ALT 17 (4-50) U/L Alkaline Phosphatase 66 (40-150) U/L Albumin 3.4 (3.3-5.0) g/dL Urine 04/24/23 Range/Units 20:37 Urine Color Yellow (Yellow) Urine Appearance Clear (Clear) Urine pH 5.5 (5.0-8.5) Ur Specific [place] 1.025 (1.000-1.030) Urine Protein 1+ A (Negative) Urine Glucose (UA) Negative (Negative) Assessment and Plan Assessment and plan (1) Hyponatremia: Problem comment: Typically has a normal sodium but tonight is 127. He has been drinking extra water because he thinks it helps his weakness in his legs when he wakes up in the morning. Plan is to reduce free water intake and monitor sodium. Can be a side effect of ibrutinib as well as UPHOLSTERY TECHNICIAN lymphoma. Status: Acute (2) Weakness: Problem comment: Patient describes weakness though I think this is mostly deconditioning. I did not find focal weakness. I am also concerned about apraxia and balance. Therapy to assess Status: Acute (3) Cognitive impairment: Problem comment: I am most concerned about cognitive impairment. This appears to be affecting most aspects of his life and function as well as his . Will evaluate with [place]. Status: Acute (4) Physical deconditioning: Problem comment: Progressively more sedentary and deconditioned due to fear of getting lost or fear of falling Status: Acute (5) Impairment of balance: Status: Acute (6) UPHOLSTERY TECHNICIAN lymphoma: Problem comment: Diagnosed about 2-3 years ago. Treated with radiation and methotrexate. Now treatment with ibrutinib. Treatment by Dr. Jabier Harkins of [facility] Status: Acute (7) Hypertension: Problem comment: Blood pressure is elevated today. Status: Acute Plan Patient is admitted for evaluation of above problems and assessment for ability to return home safely with his . Total time spent today is 70 minutes, 50 minutes in coordination of care and discussing with patient and his daughter and other providers ongoing evaluation management of cognitive decline and functional decline.
--- NOTE | 2023-04-24 22:54 | PC.NURSE ---
report to Cheyenne COTTRELL on med/surg. patient brought to med/surg accompanied by daughter, belongings sent with patient
[2023-04-24 23:00] VITALS: BP 149/79; PULSE 65; RESP 18; TEMP 37; O2SAT 94
[2023-04-25] MEDS: METOPROLOL SUCCINATE (XL) 100 MG TAB PO ×2 (00:04→08:56)
[2023-04-25] MEDS: POTASSIUM BICARB 25 MEQ EFFERVESCENT TAB PO (00:04)
[2023-04-25] MEDS: TAMSULOSIN HCL 0.4 MG CAPSULE PO ×2 (00:04→08:56)
[2023-04-25] MEDS: 0.9 % SODIUM CHLORIDE 1000 ml 1,000 ML IV (00:38)
[2023-04-25] MEDS: MAGNESIUM IV 2 GM/50 ML PIGGYBACK IVPB (00:57)
[2023-04-25 03:10] VITALS: BP 154/74; PULSE 62; RESP 16; TEMP 37.2; O2SAT 95
[2023-04-25 06:43] LABS: Chloride* 102 mmol/L (96-114); Potassium* 3.5 mmol/L (3.6-5.1); Sodium* 130 mmol/L (135-149)
[2023-04-25 06:46] LABS: Blood Urea Nitrogen* 18 mg/dL (7-30); Calcium* 8.5 mg/dL (8.4-10.6); Carbon Dioxide* 21 mmol/L (20-32); Creatinine* 0.9 mg/dL (0.5-1.5); Est. Creatinine Clearance* 58.92; Estimated Glomerular Filt Rate 86 ml/min; Glucose* 127 mg/dL (60-115)
[2023-04-25 07:20] VITALS: BP 167/80; PULSE 67; RESP 18; TEMP 37.6; O2SAT 96
--- NOTE | 2023-04-25 07:36 | PC.NURSE ---
Pt is oriented to self only but is easily reoriented and pt is aware of his forgetfulness.?Pleasant and cooperative. Afebrile. Pt denies pain,?chest pain, SOB, and N/V. Pt is tolerating a regular diet and a 1500cc fluid restriction. Pt voided x 8 times throughout night voiding around 100-250 each time, bladder scan showed 230 ml which pt voided 250?ml after bladder scan. Pt is up with SBA with gait belt and walker. Pt slept throughout most of night.??
[2023-04-25 07:43] LABS: Magnesium* 1.8 mg/dL (1.5-2.6)
[2023-04-25] MEDS: SODIUM CHLORIDE 0.9 % (FLUSH) 10 ML SYRINGE 5 ML IVF (08:55)
[2023-04-25] MEDS: OMEPRAZOLE 20 MG CAPSULE DR 40 MG PO (08:56)
[2023-04-25] MEDS: AMLODIPINE 5 MG TABLET PO (08:56)
[2023-04-25] MEDS: ursodioL 300 MG CAPSULE PO (09:33)
--- NOTE | 2023-04-25 10:29 | P.DS_ITS ---
DS: Providers Provider Date Seen: 04/25/23 Date of admission: 04/25/23 09:00 Primary care physician: Silvestre Kennedy MD Admitting Clinician: Kenji De Dios MD Consults: 04/24/23 22:09 Consult to Occupational Therapy [CONS] Routine Comment: Reason(s) for OT Consult:: Evaluate and Treat Any Restrictions?:: No Restrictions Comment: Waterflow Consult to Physical Therapy [CONS] Routine Comment: Reason(s) for PT Consult:: Evaluate and Treat Any Restrictions?:: No Restrictions Consult to Relief Man [CONS] Routine Comment: Reason for Consult:: Discharge Planning Needs 04/25/23 04:21 Consult to Physical Therapy [CONS] Routine Comment: Reason(s) for PT Consult:: Evaluate and Treat Any Restrictions?:: No Restrictions Attending Physician on discharge: [facility] Date [facility] Discharge: 04/25/23 DS: Diagnosis Discharge Diagnosis (1) BARREL POLISHER INSIDE lymphoma: Status: Acute Problem details: Diagnosed about 2-3 years ago. Treated with radiation and methotrexate. Now treatment with ibrutinib. Treatment by Dr. Jabier Harkins of [facility] -spoke with Rosita Harkins's office - will dose reduce the ibrutinib (orally dosed) from 560mg to 420mg daily -outpatient f/u with oncology and f/u MR brain planned for coming days. (2) Impairment of balance: Status: Acute Problem details: acute issues (hyponatremia, hypomagnesemia) resolved. PT/OT evaluation. will recommend outpatient evaluation with PT/OT likely secondary to ongoing BARREL POLISHER INSIDE malignancy (3) Physical deconditioning: Status: Acute Problem details: Progressively more sedentary and deconditioned due to malignancy (4) Cognitive impairment: Status: Acute Problem details: cognitive impairment not new. is bedside and seems to feel this is baseline. (5) Hyponatremia: Status: Acute Problem details: improved to 130 this am. continued general fluid restrictions, but not strict. monitor as outpatient. DS: Summary Hospital Course Hospital Course: HOSPITALIST DISCHARGE SUMMARY ATTENDING PHYSICIAN: Bhargavi Tejada MD FINAL DIAGNOSIS: Acute hyponatremia Mild hypokalemia Mild hypo magnesemia HOSPITAL FOLLOWUP ISSUES: [facility] clinic and radiological followup REFERRALS WHILE ADMITTED: Phone discussion with [facility] REFERRALS AFTER DISCHARGE: Outpatient PT and OT BRIEF HOSPITAL COURSE: Arpan has a progressive BARREL POLISHER INSIDE lymphoma that is currently being treated with ibrutinib. Was evaluated the emergency room on 04/24/2023 for increasing weakness, confusion. He was noted to have a sodium of 127. He had a mildly depressed potassium and magnesium as well. These were replaced and he was placed on a fluid restriction. Overnight he improved. Sodium this morning is 130. He remains pleasantly confused. PT and OT worked with him and his balance and general mobility is not great but is not overly limiting. I spoke with his oncology team this morning. We are going to dose reduce his chemotherapy to 420 mg daily from 560 mg. He will see them after his brain MRI next week. SUBSTANTIVE NOTATIONS ON IMAGING, LAB, MICROBIOLOGY/PATHOLOGY STUDIES: On admission his sodium was 127, improved to 130 Potassium 3.5, 3.5 this morning Magnesium 1.4, 1.8 this morning Slight white count without fever. Total WBC 11.2 Troponin was negative on admission as was his C reactive protein. BNP 502 Urine was reassuring. Respiratory screen negative Chest x-ray no focal consolidation, chronic fibrotic changes. DISCHARGE MEDICATIONS: See Reconciled list - SIGNIFICANT CHANGES: Dose reduction of ibrutinib 560 to 420mg PO daily. REVIEW OF SYSTEMS No new chest pain or dyspnea Pain controlled No voiding difficulties Tolerating diet challenge PHYSICAL EXAM: CONSTITUTIONAL: Pleasantly confused VITAL SIGNS: see record. HEENT: Normocephalic, atraumatic. PERRL, EOMI, conjunctivae pink, no scleral i cterus. Ears and nose externally normal. Pharynx normal. NECK: No JVD. No carotid bruit, no thyromegaly, no adenopathy. CHEST: Clear to auscultation bilaterally. HEART: S1 and S2 normal. Edema ABDOMEN: Soft, nontender. Normal bowel sounds. MUSCULOSKELETAL: No gross joint deformity or swelling. NEURO: Cranial nerves intact. Grossly intact. No asymmetric findings. SKIN: No rashes, petechiae, concerning changes PSYCHIATRIC: Mood euthymic. DISPOSITION: Home with Close follow-up with [facility] Time spent on discharge 37 minutes. Status at Discharge Functional status at discharge: uses cane/walker Overall status at discharge: patient is progressing back to baseline Time Spent with Patient Time attestation: Total time spent providing and/or coordinating discharge services: Time spent: Greater than 30 minutes Exam Const: Vital Signs, click to edit/add: Vital Signs - 24 hr 04/24/23 18:48 04/24/23 21:20 04/24/23 23:00 Temperature 97.9 F 98.6 F Pulse Rate [Pulse Oximeter] 73 65 Respiratory Rate 16 18 18 Blood Pressure [Le ft Arm] 149/79 H Blood Pressure [Ri ght Upper Arm] 160/84 H 179/90 H Pulse Oximetry 96 99 94 Oxygen Delivery Me thod Room Air Room Air Room Air 04/24/23 23:00 04/24/23 23:00 04/25/23 03:10 Temperature 98.6 F 98.9 F Pulse Rate [Pulse Oximeter] 65 62 Respiratory Rate 18 18 16 Blood Pressure [Le ft Arm] 149/79 H 154/74 H Blood Pressure [Ri ght Upper Arm] Pulse Oximetry 94 94 95 Oxygen Delivery Me thod Room Air Room Air Room Air 04/25/23 07:20 04/25/23 07:20 Temperature 99.7 F H Pulse Rate [Pulse Oximeter] 67 Respiratory Rate 18 18 Blood Pressure [Le ft Arm] 167/80 H Blood Pressure [Ri ght Upper Arm] Pulse Oximetry 96 Oxygen Delivery Me thod Room Air DS: Data Data Completed and Pending Labs on day of discharge: Labs from last 24 hours 04/25/23 04/24/23 04/24/23 06:05 20:37 20:09 WBC 11.20 H RBC 4.46 Hgb 13.8 Hct 40.1 MCV 90 MCH 31 MCHC 34 RDW Coeff of Jacque 12.3 Plt Count 228 Neut % (Auto) 79.9 H Lymph % (Auto) 12.0 L [place] % (Auto) 7.6 Eos % (Auto) 0.0 Baso % (Auto) 0.1 Neut # (Auto) 8.90 H Lymph # (Auto) 1.30 [place] # (Auto) 0.90 Eos # (Auto) 0.00 Baso # (Auto) 0.00 Abs Immat Gran (auto) 0.00 Imm/Tot Granulo (auto) 0.4 Sodium 130 L 127 L Potassium 3.5 L 3.5 L Chloride 102 99 Carbon Dioxide 21 22 BUN 18 22 Creatinine 0.9 0.9 Estimated Creat Clear 58.92 58.92 Estimated GFR 86 86 Glucose 127 H 107 Calcium 8.5 8.5 Magnesium 1.8 1.4 L Total Bilirubin 0.8 Direct Bilirubin 0.2 AST 19 ALT 17 Alkaline Phosphatase 66 Troponin I < 0.01 L C-Reactive Protein < 0.5 L NT-Pro-B Natriuret Pep 502 Total Protein 5.7 L Albumin 3.4 Urine Color Yellow Urine Appearance Clear Urine pH 5.5 Ur Specific [place] 1.025 Urine Protein 1+ A Urine Glucose (UA) Negative Urine Ketones 1+ A Urine Blood Trace-intact A Urine Nitrite Negative Urine Bilirubin Negative Urine Urobilinogen 1.0 Ur Leukocyte Esterase Negative Urine RBC 0-2 Urine WBC 0-2 Ur Squamous Epith Cells None Urine Bacteria None Ethyl Alcohol < 0.01 L SARS-CoV-2 (PCR) Influenza Type A (PCR) Influenza Type B (PCR) RSV (PCR) 04/24/23 19:35 WBC RBC Hgb Hct MCV MCH MCHC RDW Coeff of Jacque Plt Count Neut % (Auto) Lymph % (Auto) [place] % (Auto) Eos % (Auto) Baso % (Auto) Neut # (Auto) Lymph # (Auto) [place] # (Auto) Eos # (Auto) Baso # (Auto) Abs Immat Gran (auto) Imm/Tot Granulo (auto) Sodium Potassium Chloride Carbon Dioxide BUN Creatinine Estimated Creat Clear Estimated GFR Glucose Calcium Magnesium Total Bilirubin Direct Bilirubin AST ALT Alkaline Phosphatase Troponin I C-Reactive Protein NT-Pro-B Natriuret Pep Total Protein Albumin Urine Color Urine Appearance Urine pH Ur Specific [place] Urine Protein Urine Glucose (UA) Urine Ketones Urine Blood Urine Nitrite Urine Bilirubin Urine Urobilinogen Ur Leukocyte Esterase Urine RBC Urine WBC Ur Squamous Epith Cells Urine Bacteria Ethyl Alcohol SARS-CoV-2 (PCR) Negative SARS-CoV-2 Influenza Type A (PCR) Negative PCR FLU A Influenza Type B (PCR) Negative PCR FLU B RSV (PCR) Negative PCR RSV Discharge Plan Discharge Disposition: Home w/ Parent or Adult Date of Admission: 04/25/23 09:00 Attending Provider on Discharge: Bhargavi Tejada Primary Care Provider: Silvestre Kennedy Anticipated Discharge Date/Time: 04/25/23 12:03 Discharge Medications: Continued amlodipine 5 mg tablet 5 mg PO DAILY pantoprazole 40 mg tablet,delayed release (DR/EC) 40 mg PO DAILY ursodiol 500 mg tablet 500 mg PO BID ascorbic acid (vitamin C) 500 mg tablet 500 mg PO DAILY cholecalciferol (vitamin D3) [Vitamin D3] 50 mcg (2,000 unit) tablet 50 mcg PO DAILY fluticasone propionate [24 Hour Allergy Relief] 50 mcg/actuation spray,suspension 1 spray intranasal DAILY Rx Instructions: administer into each nostril metoprolol succinate 100 mg tablet extended release 24 hr 100 mg PO DAILY tamsulosin 0.4 mg capsule 0.4 mg PO DAILY Held ibrutinib 560 mg tablet 560 mg PO DAILY Hold Instructions: Resume on 05/09/23. stop this dose. Hold this medication until you picker feeder the new dose, 420mg from your pharmacy. Discharge Orders: Discharge Order (Routine); Ordered 04/25/23 Ordered By: Bhargavi Tejada Additional Instructions: I spoke with Dr. Harkins and his nurse Rosita today. They are aware that you were in the hospital and I went over the electrolyte abnormalities and our findings. They are comfortable with you discharging home as well. We agreed on a dose reduction of the ibrutinib to 420 mg daily. A new prescription is being sent to your pharmacy and it sounds as if this will be a combination of 3 pills to make 420 mg. Hold any dosing of the ibrutinib until you get the new script. Activity Level: Activity as Tolerated Discharge Diet: Regular Follow Up Appointments: [facility] [Provider Group] (keep MRI appt Dr. Harkins and Rosita both know you were here and I spoke with both of them. ) Forms: [employer] Info Instructions
[2023-04-25 11:23] VITALS: BP 185/87; PULSE 70; RESP 16; TEMP 36.6; O2SAT 97
[2023-04-25] MEDS: HEPARIN 500 UNIT/5 ML SYRINGE IVF (12:37)
[2023-04-25 12:52] VITALS: RESP 16; TEMP 36.6
--- NOTE | 2023-04-25 13:49 | PC.NURSE ---
Discharge. pt has been pleasant. he is alert to self only. he is reoriented and follows directions. and pt is aware of his forgetfulness.?he is SAMISH Afebrile. Pt denies pain, Pt is tolerating a regular diet and a 1500cc fluid restriction. he is eating, drinking and voiding. SL and Port are patent. He is up with SBA with gait belt, he does not like the walker. is here. PT and OT worked with him. went over discharge with . went over medications, appointments, education and instructions. SL was d/c and post was flushed/heparinized and d/c went over personal belonging sheet. offered a w/c ride out and but declined. they took all belongings and paperwork with them
== END 2023-04-25 13:25 | disposition home or self-care (01) | DRG 841 ==
LOC: ED 19:48 → MEDSURG 22:46
PROVIDERS: Admitting Provider Family Medicine; Emergency Provider Family Medicine; PCP Family Medicine; Visit Provider Family Medicine
DX: C85.89 Other specified types of non-Hodgkin lymphoma, extranodal and solid organ sites (principal); E87.1 Hypo-osmolality and hyponatremia; R53.1 Weakness; I10 Essential (primary) hypertension; G31.84 Mild cognitive impairment of uncertain or unknown etiology; E87.6 Hypokalemia; E83.42 Hypomagnesemia; R26.89 Other abnormalities of gait and mobility; N40.0 Benign prostatic hyperplasia without lower urinary tract symptoms; K74.5 Biliary cirrhosis, unspecified
CPT/HCPCS: 36415; 51798; 71045; 80048; 80076; 81001; 82077; 83735; 83880; 84484; 85025; 86140; 87631; 93005; 97116; 97161; 97166; 97535; 99284; 99285; A9270; G0378; J1642; J3475; J7030

== ENCOUNTER 2023-05-02 08:58 | Outpatient (CLI) | payer MEDICARE, BC, SELFPAY ==
--- NOTE | 2023-05-02 09:15 | CRLHL7_ITS ---
For Patients: As a result of the Century Cures Act, medical imaging exams and procedure reports are released immediately into your electronic medical record. You may view this report before your referring provider. If you have questions, please contact your health care provider. Indication: Follow-up TAPPER OPERATOR lymphoma. Technique: T1 sagittal as well as diffusion, FLAIR and T2 axial sequences were obtained. Post gadolinium T1 sequences were obtained. Contrast: 15 cc DOTAREM Comparison: 02/23/2023 Findings: There is a large multi lobulated oval enhancing mass in the right posterior medial temporal and anterior occipital regions, measuring 49 mm. A 2nd enhancing mass is seen in the right superior temporal region, measuring 41 mm in greatest dimension. Only small foci of irregular and nodular enhancement were seen in both of these locations on 02/23/2023. The left temporal occipital region shows tiny foci of hemorrhage or calcification. These findings are typical for recurrent TAPPER OPERATOR lymphoma. There is considerable surrounding vasogenic edema and localized mass effect including some protrusion of the posterior mesial temporal parenchyma over the free margin of the tentorium, new from the previous study. There is an 11 mm focus of abnormal cortical signal along the parasagittal left posterior frontal region (series 6 FLAIR axial image 26). Although there is no associated abnormal gadolinium enhancement, the finding could also represent lymphoma. Abnormal T2 signal and hemosiderin deposition are seen in the parasagittal right occipital lobe compatible with previously treated tumor. Chronic encephalomalacia and gliosis in the right temporal pole region, unchanged. No ventricular obstruction. No space-occupying hemorrhage. No evidence for acute infarct. Grossly normal flow voids are maintained in the directly imaged intracranial vascular structures. The craniovertebral junction is unremarkable, with a patent foramen magnum. Opacified air cells are seen in the left mastoid, new from 02/23/2023. The right temporal bone remains well aerated. There is slight membrane thickening scattered in the paranasal sinuses. I called Dr. Bunch and discussed these findings on 05/04/2023 at 0830 hours. Impression: 1. 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 Considerable surrounding vasogenic edema and localized mass effect, with early parenchymal herniation over the free margin of the tentorium. 2. There is a new 11 mm focus of nonenhancing cortical signal abnormality in the parasagittal left posterior frontal region. This could also represent recurrent tumor. 3. No present ventricular obstruction. Dictated by Case Singh MD @ 05/04/2023 8:34:40 AM (Electronically Signed)
== END 2023-05-02 08:59 | disposition home or self-care (01) ==
LOC: MRI 08:59
PROVIDERS: PCP Family Medicine; Visit Provider Radiology Radiation Oncology
DX: C85.89 Other specified types of non-Hodgkin lymphoma, extranodal and solid organ sites (principal); G93.9 Disorder of brain, unspecified
CPT/HCPCS: 36415; 70553; 80053; 83615; 85025; A9575

== ENCOUNTER 2023-05-16 13:45 | Outpatient (CLI) | payer MEDICARE, BC, SELFPAY ==
[2023-05-16 14:09] LABS: Hematocrit 44.1 % (37.0-53.0); Hemoglobin* 14.8 gm/dL (13.5-17.5); Immature Granulocytes Pct Auto 4.3 %; Mean Corpuscular HGB Conc 34 gm/dL (32-36); Mean Corpuscular Hemoglobin 31 pg (26-34); Mean Corpuscular Volume 93 fL (80-100); Monocytes Percent Auto 4.3 % (0.0-11.0); Neutrophils Percent Auto 85.4 % (42.0-72.0); Platelet Count* 240 K/uL (140-440); RDW Coefficient of Variation % 13.6 % (11.5-15.5); Red Blood Count 4.73 m/uL (4.30-5.90); White Blood Count* 12.65 K/uL (4.50-11.00)
[2023-05-16 14:16] LABS: Slide Review Reflex Yes
[2023-05-16 22:48] LABS: Slide Review Acceptable Review (Acceptable)
== END 2023-05-16 13:46 | disposition home or self-care (01) ==
PROVIDERS: PCP Family Medicine; Visit Provider Internal Medicine Hematology & Oncology
DX: C85.89 Other specified types of non-Hodgkin lymphoma, extranodal and solid organ sites (principal); Z92.21 Personal history of antineoplastic chemotherapy
CPT/HCPCS: 36415; 85025

== ENCOUNTER 2023-06-05 15:40 | Outpatient (CLI) | payer MEDICARE, BC, SELFPAY ==
--- NOTE | 2023-06-05 16:00 | CRLHL7_ITS ---
For Patients: As a result of the Century Cures Act, medical imaging exams and procedure reports are released immediately into your electronic medical record. You may view this report before your referring provider. If you have questions, please contact your health care provider. INDICATION: Localized edema, current chemo/radiation treatment. COMPARISON: None. TECHNIQUE: A compression venous ultrasound exam was performed of the left upper extremity using mendez-scale imaging, color Doppler, and spectral Doppler analysis. FINDINGS: Sonographic imaging of the left upper extremity demonstrates normal compressibility and color Doppler venous blood flow within the internal jugular, innominate, subclavian, axillary, brachial, basilic, cephalic, radial, and ulnar veins. IMPRESSION: Negative for acute DVT in the left upper extremity. Dictated by Namrata Chaney MD @ 06/06/2023 12:48:46 AM (Electronically Signed)
== END 2023-06-05 15:41 | disposition home or self-care (01) ==
LOC: US 15:42
PROVIDERS: PCP Family Medicine; Visit Provider Nurse Practitioner Adult Health
DX: R60.0 Localized edema (principal)
CPT/HCPCS: 93971

== ENCOUNTER 2023-06-12 09:38 | Outpatient (CLI) | payer MEDICARE, BC, SELFPAY ==
[2023-06-12 10:23] LABS: Hematocrit 43.2 % (37.0-53.0); Hemoglobin* 14.5 gm/dL (13.5-17.5); Mean Corpuscular HGB Conc 34 gm/dL (32-36); Mean Corpuscular Hemoglobin 32 pg (26-34); Mean Corpuscular Volume 94 fL (80-100); Platelet Count* 247 K/uL (140-440); Red Blood Count 4.59 m/uL (4.30-5.90); White Blood Count* 7.37 K/uL (4.50-11.00)
[2023-06-12 10:26] LABS: Slide Review Reflex Yes
[2023-06-12 10:27] LABS: Creatinine* 1.1 mg/dL (0.5-1.5); Estimated Glomerular Filt Rate 68 ml/min
[2023-06-12 11:33] LABS: Slide Review Acceptable Review (Acceptable)
== END 2023-06-12 09:39 | disposition home or self-care (01) ==
PROVIDERS: PCP Family Medicine; Visit Provider Internal Medicine Hematology & Oncology
DX: C85.89 Other specified types of non-Hodgkin lymphoma, extranodal and solid organ sites (principal)
CPT/HCPCS: 36415; 82565; 85025

== ENCOUNTER 2023-06-15 13:26 | Outpatient (CLI) | payer MEDICARE, BC, SELFPAY | END 2023-06-15 13:27 | disposition home or self-care (01) | LOC: WOUND 13:27 | PROVIDERS: PCP Family Medicine; Visit Provider Nurse Practitioner Family | DX: L08.9 Local infection of the skin and subcutaneous tissue, unspecified (principal); R60.0 Localized edema; C85.89 Other specified types of non-Hodgkin lymphoma, extranodal and solid organ sites | CPT/HCPCS: 87070; 97597; 99213 ==

== ENCOUNTER 2023-06-22 14:45 | Outpatient (CLI) | payer MEDICARE, BC, SELFPAY | END 2023-06-22 14:46 | disposition home or self-care (01) | LOC: WOUND 14:46 | PROVIDERS: PCP Family Medicine; Visit Provider Nurse Practitioner Family | DX: L03.114 Cellulitis of left upper limb (principal); R60.0 Localized edema | CPT/HCPCS: 97597 ==

== ENCOUNTER 2023-06-29 14:20 | Outpatient (CLI) | payer MEDICARE, BC, SELFPAY | END 2023-06-29 14:21 | disposition home or self-care (01) | LOC: WOUND 14:20 | PROVIDERS: PCP Family Medicine; Visit Provider Nurse Practitioner Family | DX: L08.9 Local infection of the skin and subcutaneous tissue, unspecified (principal); R60.0 Localized edema | CPT/HCPCS: 97597 ==

== ENCOUNTER 2023-07-06 14:33 | Outpatient (CLI) | payer MEDICARE, BC, SELFPAY | END 2023-07-06 14:34 | disposition home or self-care (01) | LOC: WOUND 14:33 | PROVIDERS: PCP Family Medicine; Visit Provider Nurse Practitioner Family | DX: L08.9 Local infection of the skin and subcutaneous tissue, unspecified (principal); R60.0 Localized edema | CPT/HCPCS: 99212 ==

== ENCOUNTER 2023-07-30 07:06 | Outpatient (CLI) | payer MEDICARE, BC, SELFPAY ==
--- NOTE | 2023-07-30 07:15 | CRLHL7_ITS ---
For Patients: As a result of the Century Cures Act, medical imaging exams and procedure reports are released immediately into your electronic medical record. You may view this report before your referring provider. If you have questions, please contact your health care provider. 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 TECHNIQUE: Multiplanar multisequence MR imaging acquired through the brain prior to and following intravenous contrast. COMPARISON: MRI brain 05/02/2023. FINDINGS: Interval near resolution of multifocal enhancing lesions in the right cerebral hemisphere. There is minimal residual enhancement within the posteromedial right temporal lobe and anterior right occipital lobe. No new or enlarging enhancing intracranial lesions. Encephalomalacia and gliosis within the lateral and anterior right temporal lobes, inferior right frontal operculum, as well subjacent to a right occipital debbie hole. Thin intrinsic T1 shortening and hemosiderin within the treatment beds. Significantly decreased parenchymal edema associated with improved caliber the ventricular system and resolution of midline shift. [id number] FLAIR hyperintensity within the right parieto-occipital white matter and extending across the corpus callosum splenium may represent edema and/or gliosis. Prominence of the ventricles and sulci compatible with [id number] diffuse cerebral volume loss. No mass effect. No diffusion restriction to suggest acute infarction. The major arterial flow voids of the skullbase are preserved. The globes are symmetric. Mild paranasal sinus mucosal thickening. Postsurgical changes of endoscopic sinus surgery. Small bilateral mastoid effusions. IMPRESSION: 1. Interval near resolution of multifocal enhancing lesions in the right cerebral hemisphere. Significantly decreased parenchymal edema associated with improved caliber of the ventricular system and resolution of midline shift. Findings are compatible with a favorable treatment response. No new or enlarging enhancing intracranial lesions. 2. No acute infarction. Dictated by Luca Whyte MD @ 07/30/2023 3:35:26 PM (Electronically Signed)
== END 2023-07-30 07:07 | disposition home or self-care (01) ==
LOC: MRI 07:08
PROVIDERS: PCP Family Medicine; Visit Provider Internal Medicine Hematology & Oncology
DX: C85.89 Other specified types of non-Hodgkin lymphoma, extranodal and solid organ sites (principal)
CPT/HCPCS: 70553; A9575

== ENCOUNTER 2023-08-06 07:52 | Emergency (ER) | payer MEDICARE, BC, SELFPAY ==
[2023-08-06 08:24] VITALS: BP 125/75; PULSE 88; RESP 18; TEMP 36.4; O2SAT 98
[2023-08-06 08:25] LABS: Appearance Urine Clear (Clear); Bilirubin Urine Negative (Negative); Blood Urine Negative (Negative); Color Urine Yellow (Yellow); Glucose Urine Negative (Negative); Ketones Urine Negative (Negative); Leukocyte Esterase Urine Negative (Negative); Nitrite Urine Negative (Negative); Protein Urine Negative (Negative); Specific Gravity Urine 1.015 (1.000-1.030); Urobilinogen Urine 0.2 (0.2-1.0); pH Urine 5.5 (5.0-8.5)
[2023-08-06 08:37] LABS: RBC Urine 0-2 (0-2); Squamous Epithelial Cell Urine Few (None-Few); WBC Urine 0-2 (0-5)
[2023-08-06 08:38] LABS: Mucus Urine Few
--- NOTE | 2023-08-06 09:18 | ED.MALEGU ---
HPI - Male Genitourinary General Time Seen by Provider: 09:18 Date Seen: 08/06/23 Chief complaint: Urogenital Problems, Male Stated complaint: Suspected bladder infection--frequent urination Time Seen by Provider: 08/06/23 08:30 Source: patient, family and RN notes reviewed Mode of arrival: ambulatory Limitations: no limitations History of Present Illness HPI Narrative: patient is an 78-year-old male presenting to the ER with his with concern of urinary frequency. He had about 5-6 episodes of nocturia last night. They do have an upcoming neurology appointment. He has been having urinary frequency, they have not had a urinalysis done in clinic. Was able to review with him his urinalysis results as the UA was collected on arrival. He is not showing any definitive infection on the urinalysis, urine culture will be done. He does not have any abdominal pain, feels that he has emptied his bladder. No fevers or chills. Just has a sense that he needs to urinate more frequently. Does not endorse any significant caffeine intake. Related Data Home Medications Medication Instructions Recorded Confirmed amlodipine 5 mg tablet 5 mg PO DAILY 04/24/23 04/24/23 ibrutinib 560 mg tablet 560 mg PO DAILY 04/24/23 04/24/23 pantoprazole 40 mg tablet,delayed 40 mg PO DAILY 04/24/23 04/24/23 release ursodiol 500 mg tablet 500 mg PO BID 04/24/23 04/24/23 ascorbic acid (vitamin C) 500 mg 500 mg PO DAILY 04/25/23 04/25/23 tablet cholecalciferol (vitamin D3) 50 50 mcg PO DAILY 04/25/23 04/25/23 mcg (2,000 unit) tablet (Vitamin D3) fluticasone propionate 50 1 spray intranasal DAILY 04/25/23 04/25/23 mcg/actuation nasal spray,suspension (24 Hour Allergy Relief) metoprolol succinate 100 mg 100 mg PO DAILY 04/25/23 04/25/23 tablet,extended release 24 hr tamsulosin 0.4 mg capsule 0.4 mg PO DAILY 04/25/23 04/25/23 Allergies Allergy/AdvReac Type Severity Reaction Status Date / Time No Known Drug Allergies Allergy Verified 04/24/23 18:57 Review of Systems Narrative: As per HPI. PFSH PFS Medical History Status post stereotactic brain biopsy ?Z98.890 - Other specified postprocedural states (ICD-10) BPH (benign prostatic hyperplasia) ?N40.0 - Benign prostatic hyperplasia without lower urinary tract symptoms (ICD-10) Biliary cirrhosis ?K74.5 - Biliary cirrhosis, unspecified (ICD-10) Obesity ?E66.9 - Obesity, unspecified (ICD-10) Impairment of balance ?R26.89 - Other abnormalities of gait and mobility (ICD-10) Physical deconditioning ?R53.81 - Other malaise (ICD-10) Cognitive impairment ?R41.89 - Other symptoms and signs involving cognitive functions and awareness (ICD-10) 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 ?C85.89 - Other specified types of non-Hodgkin lymphoma, extranodal and solid organ sites (ICD-10) Surgical History H/O nasal polypectomy ?Z98.890 - Other specified postprocedural states (ICD-10) ?Z87.09 - Personal history of other diseases of the respiratory system (ICD-10) H/O blepharoplasty ?Z98.890 - Other specified postprocedural states (ICD-10) H/O colonoscopy ?Z98.890 - Other specified postprocedural states (ICD-10) S/P radiation therapy ?Z92.3 - Personal history of irradiation (ICD-10) Family History (Updated 04/24/23 @ 22:58 by Kenji De Dios MD) Father COPD (chronic obstructive pulmonary disease) Brother Prostate cancer Other Heart disease Social History (Updated 04/24/23 @ 22:58 by Kenji De Dios MD) Narrative: He lives in [place] with his . They live in their own home. He ambulates without a walker. He does not smoke. Drinks alcohol a couple times a week. Code status is on certain at this time. 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 What is your current living situation?: I presently have a place to live Problems where you live: no known problems Problems where you live details: none In the past 12 months, utilities in danger of being shut off: no In past 12 months, lack of transportation kept you from medical appts, meetings, work, or getting things needed for daily living: no In the past 12 mos, have been you worried that your food would run out before you had money to buy more?: never true In the past 12 mos, the food you bought just didn't last and you didn't have money to buy more?: never true Smoking Status: Never smoker Do you use any of these nicotine containing products: None Second hand tobacco smoke exposure: No How often do you have a drink containing alcohol: 2-4 times a month Alcohol type: beer How many standard drinks containing alcohol do you have on a typical day: 1 or 2 How often do you have six or more drinks on one occasion: Never AUDIT-C Alcohol total score: 2 Non-prescribed substance use: denies use Caffeine: Yes (Coffee) How often does anyone, including family, friends and others, physically hurt you: never How often does anyone, including family, friends and others, insult or talk down to you: never How often does anyone, including family, friends and others, threaten you with harm: never How often does anyone, including family, friends and others, scream or curse at you: never service: No Exam Const: Vital Signs, click to edit/add: Vital Signs - 24 hr 08/06/23 08:24 Temperature 97.5 F L Pulse Rate [Right Pulse Oximeter] 88 Respiratory Rate 18 Blood Pressure [Ri ght Upper Arm] 125/75 Pulse Oximetry 98 Oxygen Delivery Me thod Room Air 78-year-old male ambulatory into the ED of his own accord. He is alert, interactive, no apparent distress. CV regular rate and rhythm, no murmur, normal S1 and S2. Lungs clear anteriorly, no tachypnea or increased work of breathing noted. Abdomen is soft, no rebound or guarding, no organomegaly. Bladder scan was done, 66 mL. Did ultrasound, do see bladder with some urine in it. Will have nursing staff get a postvoid residual. He urinated not too long ago, will ensure that there is no significant retention, certainly does not seem like it based on the bladder scan or my ultrasound. Documenting provider has reviewed patient's vital signs: yes Course Course ED Course: Obtain postvoid residual, if significant amount in the bladder, will place Sommers. Otherwise have reviewed with his that there can be other conditions that can cause urinary frequency that are not infectious in nature. Would need to follow up with Urology in that situation and they do have an appointment. We will certainly let them know if the urine culture does grow anything but again the urinalysis is looking benign at this point. Reevaluation(s) Time of Reevaluation #1: 09:34 Reevaluation #1: Nursing staff reports that patient did not tolerate the straight cath very well but that they did not get any urine drainage. Certainly on bladder scan as well as on ultrasound I saw no significantly enlarged bladder. Will discharge to home with outpatient urology follow-up at this time. Vital Signs Vital signs: Initial Vital Signs Temperature 97.5 F L 08/06/23 08:24 Temperature Source Temporal Artery Scan 08/06/23 08:24 Pulse Rate 88 08/06/23 08:24 Respiratory Rate 18 08/06/23 08:24 Blood Pressure 125/75 08/06/23 08:24 Blood Pressure Mean 91 08/06/23 08:24 Blood Pressure Position Sitting 08/06/23 08:24 Pulse Oximetry 98 08/06/23 08:24 Oxygen Delivery Method Room Air 08/06/23 08:24 Vital Signs Temperature 97.5 F L 08/06/23 08:24 Pulse Rate 88 08/06/23 08:24 Respiratory Rate 18 08/06/23 08:24 Blood Pressure 125/75 08/06/23 08:24 Pulse Oximetry 98 08/06/23 08:24 Oxygen Delivery Method Room Air 08/06/23 08:24 Temperature 97.5 F L 08/06/23 08:24 Pulse Rate 88 08/06/23 08:24 Respiratory Rate 18 08/06/23 08:24 Blood Pressure 125/75 08/06/23 08:24 Pulse Oximetry 98 08/06/23 08:24 Oxygen Delivery Method Room Air 08/06/23 08:24 MDM - Male Genitourinary Lab Data Labs: Lab Results 08/06/23 Range/Units 08:16 Urine Color Yellow (Yellow) Urine Appearance Clear (Clear) Urine pH 5.5 (5.0-8.5) Ur Specific Ocate 1.015 (1.000-1.030) Urine Protein Negative (Negative) Urine Glucose (UA) Negative (Negative) Urine Ketones Negative (Negative) Urine Blood Negative (Negative) Urine Nitrite Negative (Negative) Urine Bilirubin Negative (Negative) Urine Urobilinogen 0.2 (0.2-1.0) Ur Leukocyte Esterase Negative (Negative) Urine RBC 0-2 (0-2) Urine WBC 0-2 (0-5) Ur Squamous Epith Cells Few (None-Few) Urine Bacteria None (None) Urine Mucus Few A (None) Discharge Plan Discharge Clinical Impression: Urinary frequency Patient Disposition: Home w/ Parent or Adult Condition: Stable Instructions: Urinary Urgency and Frequency (DC) Additional Instructions: Need to keep urology appointment for further evaluation management of your symptoms. We will let you know if the urine culture does show any evidence of infection and would initiate antibiotics appropriately if needed. Again, urinalysis does not point to any evidence of infection at this time. Prescriptions: No Action amlodipine 5 mg tablet 5 mg PO DAILY pantoprazole 40 mg tablet,delayed release (DR/EC) 40 mg PO DAILY ursodiol 500 mg tablet 500 mg PO BID ibrutinib 560 mg tablet 560 mg PO DAILY Hold Instructions: Resume on 05/09/23. stop this dose. 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 ascorbic acid (vitamin C) 500 mg tablet 500 mg PO DAILY cholecalciferol (vitamin D3) [Vitamin D3] 50 mcg (2,000 unit) tablet 50 mcg PO DAILY fluticasone propionate [24 Hour Allergy Relief] 50 mcg/actuation spray,suspension 1 spray intranasal DAILY Rx Instructions: administer into each nostril metoprolol succinate 100 mg tablet extended release 24 hr 100 mg PO DAILY tamsulosin 0.4 mg capsule 0.4 mg PO DAILY Follow Up/Referrals: Silvestre Kennedy MD [Primary Care Provider] - Stand Alone Forms: [facility] Info Instructions
--- NOTE | 2023-08-06 09:34 | ED.NURSE ---
Straight catheterization performed with successful insertion of catheter but no urine return, presumably empty bladder. Patient perseverates on what happens next, what he is supposed to do at home. Assurances provided however patient just repeats the same questions.
== END 2023-08-06 10:08 | disposition home or self-care (01) ==
PROVIDERS: Emergency Provider Family Medicine; PCP Family Medicine
DX: R35.0 Frequency of micturition (principal)
CPT/HCPCS: 51702; 51798; 81001; 99283

== ENCOUNTER 2023-12-11 14:00 | Outpatient (RCR) | payer MEDICARE, BC, SELFPAY | END 2024-01-08 14:27 | disposition home or self-care (01) | PROVIDERS: PCP Family Medicine; Visit Provider Internal Medicine Hematology & Oncology | DX: C85.89 Other specified types of non-Hodgkin lymphoma, extranodal and solid organ sites (principal); R26.81 Unsteadiness on feet; R26.9 Unspecified abnormalities of gait and mobility; R53.1 Weakness; Z51.89 Encounter for other specified aftercare | CPT/HCPCS: 97110; 97112; 97161; 97165; 97535 ==

== ENCOUNTER 2024-05-19 04:31 | Emergency (ER) | payer MEDICARE, BC, SELFPAY ==
[2024-05-19 04:39] VITALS: BP 146/86; PULSE 69; RESP 16; TEMP 36.4; O2SAT 98; BMI 28.4
--- NOTE | 2024-05-19 04:49 | CRLHL7_ITS ---
For Patients: As a result of the Century Cures Act, medical imaging exams and procedure reports are released immediately into your electronic medical record. You may view this report before your referring provider. If you have questions, please contact your health care provider. Indication: Fall on Reginald, back pain, history of brain lymphoma. Technique: Noncontrast axial CT of the lumbar spine with coronal and sagittal reformats. Comparison: Lumbar spine x-ray 07/14/2013 Findings: Straightening of the normal lumbar lordosis, with bulky ventral lateral projecting osteophytes and bridging syndesmophytes throughout the lower thoracic and lumbar levels. Subtle oblique/horizontally oriented fracture spanning the mid right L1 body to the left inferior endplate (series 5 images 14-24. No vertebral height loss, cortical retropulsion, or evidence of posterior element involvement. Subtle nondisplaced fracture traversing a left ventral bridging syndesmophyte at the L5-S1 level, encroaching upon the left anterior S1 superior endplate (series 5 images 10-20). Irregularity of the right L1 and L2 transverse processes, favored chronic. Scattered spondylosis, contributing to mild left neural foraminal narrowing at L5-S1. No significant spinal canal stenosis. Bony ankylosis across the bilateral SI joints. Aortoiliac atherosclerotic plaquing. Suspect nonobstructive punctate right renal stone. Colonic diverticulosis. Impression: 1. Acute subtle oblique/horizontally oriented fracture of the L1 vertebral body, without vertebral height loss, cortical retropulsion, or evidence of posterior element involvement. 2. Acute subtle nondisplaced fracture involving a bridging osteophyte at the L5-S1 level, encroaching upon the left anterior S1 superior endplate. 3. Irregularity of the right L1 and L2 transverse processes is favored chronic. 4. Spondylosis and ankylosis as detailed. No high-grade neural foraminal or spinal canal stenosis identified. Exam findings were discussed with Dr. Price at 8:24 a.m. on 05/19/2024. Please note that all CT scans at this facility use dose modulation, iterative reconstruction, and/or weight-based dosing when appropriate to reduce radiation dose to as low as reasonably achievable. Dictated by Belinda Malcolm MD @ 05/19/2024 8:27:52 AM (Electronically Signed)
[2024-05-19] MEDS: OxyCODONE/APAP 5-325 TABLET 1 TAB PO (04:55)
--- NOTE | 2024-05-19 04:58 | ED.BACK ---
HPI - Back Pain/Injury General Date Seen: 05/19/24 Chief Complaint: Back Injury/Pain Stated Complaint: fell on Sunday, back pain not getting better Time Seen by Provider: 05/19/24 04:38 Source: patient Mode of arrival: ambulatory Limitations: no limitations History of Present Illness HPI Narrative: Patient is an 79-year-old gentleman who presents here to the bridge she had apart rate. With a history of low back pain on the right side, he fell off a swing, there is no history of pain that radiates to his legs, no bowel or bladder symptoms they been using a lidocaine patch and some Tylenol, but this is not quite cut her covering it. The pain worsened today. And he asked his to bring him to the emergency department. Pain seemingly worse when he bends forward, or sits better when he stands. No history of loss of consciousness or any other injury associated with this lives at home with his . MD elicited complaint: back pain, back injury and fall Pertinent past history: recent trauma Onset (ago): day(s) Severity: moderate Similar Symptoms Previously: No Quality: dull and stabbing Location: lumbar spine Radiation: none Exacerbating factors: sitting upright Relieving factors: medication Associated symptoms: denies other symptoms Treatments prior to arrival: cold therapy and acetaminophen Work related injury: No Related Data Home Medications ?Medication ?Instructions ?Recorded ?Confirmed amlodipine 5 mg tablet 5 mg PO DAILY 04/24/23 05/19/24 ibrutinib 560 mg tablet 560 mg PO DAILY 04/24/23 08/16/23 pantoprazole 40 mg tablet,delayed 40 mg PO DAILY 04/24/23 05/19/24 release ursodiol 500 mg tablet 500 mg PO BID 04/24/23 05/19/24 ascorbic acid (vitamin C) 500 mg 500 mg PO DAILY 04/25/23 05/19/24 tablet cholecalciferol (vitamin D3) 50 50 mcg PO DAILY 04/25/23 05/19/24 mcg (2,000 unit) tablet (Vitamin D3) fluticasone propionate 50 1 spray intranasal DAILY 04/25/23 08/16/23 mcg/actuation nasal spray,suspension (24 Hour Allergy Relief) metoprolol succinate 100 mg 100 mg PO DAILY 04/25/23 05/19/24 tablet,extended release 24 hr tamsulosin 0.4 mg capsule 0.4 mg PO DAILY 04/25/23 05/19/24 trospium 20 mg tablet 20 mg PO QDAY 08/16/23 08/16/23 Previous Rx's ?Medication ?Instructions ?Recorded oxycodone-acetaminophen 5 mg-325 1 tab PO TID PRN pain #10 tabs 05/19/24 mg tablet (Percocet) Allergies Allergy/AdvReac Type Severity Reaction Status Date / Time No Known Drug Allergies Allergy Verified 08/16/23 11:35 Review of Systems Status of ROS: Reports: 10 or more systems reviewed and unremarkable except as noted in History and below [facility] Medical History Status post stereotactic brain biopsy ?Z98.890 - Other specified postprocedural states (ICD-10) BPH (benign prostatic hyperplasia) ?N40.0 - Benign prostatic hyperplasia without lower urinary tract symptoms (ICD-10) Biliary cirrhosis ?K74.5 - Biliary cirrhosis, unspecified (ICD-10) Obesity ?E66.9 - Obesity, unspecified (ICD-10) Impairment of balance ?R26.89 - Other abnormalities of gait and mobility (ICD-10) Physical deconditioning ?R53.81 - Other malaise (ICD-10) Cognitive impairment ?R41.89 - Other symptoms and signs involving cognitive functions and awareness (ICD-10) 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 lymphoma ?C85.89 - Other specified types of non-Hodgkin lymphoma, extranodal and solid organ sites (ICD-10) Surgical History H/O nasal polypectomy ?Z98.890 - Other specified postprocedural states (ICD-10) ?Z87.09 - Personal history of other diseases of the respiratory system (ICD-10) H/O blepharoplasty ?Z98.890 - Other specified postprocedural states (ICD-10) H/O colonoscopy ?Z98.890 - Other specified postprocedural states (ICD-10) S/P radiation therapy ?Z92.3 - Personal history of irradiation (ICD-10) Family History (Updated 04/24/23 @ 22:58 by Kenji De Dios MD) Father COPD (chronic obstructive pulmonary disease) Brother Prostate cancer Other Heart disease Social History (Updated 04/24/23 @ 22:58 by Kenji De Dios MD) Narrative: He lives in [place] with his . They live in their own home. He ambulates without a walker. He does not smoke. Drinks alcohol a couple times a week. Code status is on certain at this time. 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 What is your current living situation?: I presently have a place to live Problems where you live: no known problems Problems where you live details: none In the past 12 months, utilities in danger of being shut off: no In past 12 months, lack of transportation kept you from medical appts, meetings, work, or getting things needed for daily living: no In the past 12 mos, have been you worried that your food would run out before you had money to buy more?: never true In the past 12 mos, the food you bought just didn't last and you didn't have money to buy more?: never true Smoking Status: Never smoker Do you use any of these nicotine containing products: None Second hand tobacco smoke exposure: No How often do you have a drink containing alcohol: 2-4 times a month Alcohol type: beer How many standard drinks containing alcohol do you have on a typical day: 1 or 2 How often do you have six or more drinks on one occasion: Never AUDIT-C Alcohol total score: 2 Non-prescribed substance use: denies use Caffeine: Yes (Coffee) How often does anyone, including family, friends and others, physically hurt you: never How often does anyone, including family, friends and others, insult or talk down to you: never How often does anyone, including family, friends and others, threaten you with harm: never How often does anyone, including family, friends and others, scream or curse at you: never service: No Exam Narrative: Exam Narrative: Patient is seen in room 5, he has no apparent distress he is able to sit up out of bed, and stand for me, localizes pain over the right lower back region. Forward flexion is 10? full extension, EHLs great toe flexors ankle dorsiflexors plantar flexors knee flexors 10 sirs and hip flexors are graded 5/5 power bilaterally muscle bulk seems adequate on his lower legs pulses are normal sensations normal. Reflexes are 0/4 his knees and ankles. Const: Vital Signs, click to edit/add: Vital Signs - 24 hr 05/19/24 04:39 05/19/24 05:33 Temperature 97.6 F Pulse Rate [Pulse Oximeter] 69 67 Respiratory Rate 16 16 Blood Pressure [Ri ght Upper Arm] 146/86 H 146/75 H Pulse Oximetry 98 98 Oxygen Delivery Me thod Room Air Room Air Course Vital Signs Vital signs: Initial Vital Signs Temperature 97.6 F 05/19/24 04:39 Temperature Source Temporal Artery Scan 05/19/24 04:39 Pulse Rate 69 05/19/24 04:39 Respiratory Rate 16 05/19/24 04:39 Blood Pressure 146/86 H 05/19/24 04:39 Blood Pressure Mean 106 H 05/19/24 04:39 Blood Pressure Position Sitting 05/19/24 04:39 Pulse Oximetry 98 05/19/24 04:39 Oxygen Delivery Method Room Air 05/19/24 04:39 Vital Signs Temperature 97.6 F 05/19/24 04:39 Pulse Rate 69 05/19/24 04:39 Respiratory Rate 16 05/19/24 04:39 Blood Pressure 146/86 H 05/19/24 04:39 Pulse Oximetry 98 05/19/24 04:39 Oxygen Delivery Method Room Air 05/19/24 04:39 Temperature 97.6 F 05/19/24 04:39 Pulse Rate 67 05/19/24 05:33 Respiratory Rate 16 05/19/24 05:33 Blood Pressure 146/75 H 05/19/24 05:33 Pulse Oximetry 98 05/19/24 05:33 Oxygen Delivery Method Room Air 05/19/24 05:33 Medications Administered Medications: Discontinued Medications Generic Name Dose Route Start Last Admin Trade Name Freq PRN Reason Stop Dose Admin Oxycodone/Acetaminophen 1 tab 05/19/24 04:49 05/19/24 04:55 Oxycodone/Apap 5-325 Tablet PO 05/19/24 04:50 1 tab ONCE ONE Administration MDM - Back Pain/Injury MDM Narrative Medical decision making narrative: Life-threatening differential diagnosis considered include: Cauda equina an epidural abscess, other differential diagnosis considered includes sprain, contusion, nerve root entrapment, radiculopathy, muscle spasm, urolithiasis, lumbar fracture, pyelonephritis, appendicitis, biliary colic, as well as other etiologies. The patient denies saddle anesthesia bowel or bladder incontinence or lower extremity weakness, recent weight loss, or history of malignancy. I do think that he is likely has a compression fracture, we will go ahead and get a CT scan, I will give a dose of Percocet here, I may need to give him a salmon calcitonin nasal spray also, he may need lumbar support. He does not have a history of hypercalcemia, and good renal function as of 1 year ago from the chart. Medical Records Attestation: I reviewed the patient's medical records. Lab Data Attestation: I reviewed the patient's lab results. Imaging Data CT lumbar spine: Attestation: I have reviewed the pertinent imaging results. My impression: Nothing acute Radiologist's impression: Patient: ROSALINDA MORRIS Facility:?[facility] Patient ID:?[id number] Site Patient ID:?[id number]. Site :?[id number] Study:?CT-Spine Lumbar W/O-05/19/2024 5:37:56 AM Ordering Physician:Leslie Kaba Preliminary Report: INDICATION: Fall on Sunday, back pain. History of brain lymphoma. COMPARISON: Lumbar spine radiographs 07/14/2013 TECHNIQUE: CT of the lumbar spine without contrast. Multiplanar axial, coronal, and sagittal reformats were reconstructed. FINDINGS: No fracture. 4 millimeters retrolisthesis of L5 on S1. Multilevel disc degenerative change. Multilevel bridging and non bridging osteophytes and calcified disc osteophyte complex. Multilevel facet arthritis. No severe neural foraminal narrowing. No severe central canal stenosis. No destructive bony lesions. Atherosclerotic vascular calcifications. Nonobstructing calculi in the right upper pole. IMPRESSION: No acute or traumatic findings on cervical spine CT. Dictated by Mony Wilson MD @ 05/19/2024 5:53:07 AM Read by:?Mony Wilson MD @05/19/2024 5:53:14 AM Discharge Plan Discharge Clinical Impression: Lumbar back pain, Strain of lumbar region Patient Disposition: Home w/ Parent or Adult Condition: Stable Instructions: Acute Low Back Pain (ED) Additional Instructions: He would be helpful to by a back brace, at the pharmacy, I will get 1 that is softer with Velcro that you can put on. Prescription given for pain medication, please use a stool softener such as MiraLax with this or you will get constipated, start offload with 1 tablet twice a day, you can supplement this with some Tylenol. Follow-up with your regular physician within the next 3 days, for recheck and more pain medication as needed. Activity Level: Light activity Prescriptions: New oxycodone-acetaminophen [Percocet] 5-325 mg tablet 1 tab PO TID PRN (Reason: pain) Qty: 10 0RF No Action trospium 20 mg tablet 20 mg PO QDAY Rx Instructions: administer on an empty stomach amlodipine 5 mg tablet 5 mg PO DAILY pantoprazole 40 mg tablet,delayed release (DR/EC) 40 mg PO DAILY ursodiol 500 mg tablet 500 mg PO BID ibrutinib 560 mg tablet 560 mg PO DAILY Hold Instructions: Resume on 05/09/23. stop this dose. Hold this medication until you pecan picker the new dose, 420mg from your pharmacy. ascorbic acid (vitamin C) 500 mg tablet 500 mg PO DAILY cholecalciferol (vitamin D3) [Vitamin D3] 50 mcg (2,000 unit) tablet 50 mcg PO DAILY fluticasone propionate [24 Hour Allergy Relief] 50 mcg/actuation spray,suspension 1 spray intranasal DAILY Rx Instructions: administer into each nostril metoprolol succinate 100 mg tablet extended release 24 hr 100 mg PO DAILY tamsulosin 0.4 mg capsule 0.4 mg PO DAILY Follow Up/Referrals: Silvestre Kenneyd MD [Primary Care Provider] - Stand Alone Forms: [employer] Info Instructions
[2024-05-19 05:33] VITALS: BP 146/75; PULSE 67; RESP 16; O2SAT 98
== END 2024-05-19 06:49 | disposition home or self-care (01) ==
PROVIDERS: Emergency Provider Family Medicine; PCP Family Medicine
DX: S32.010A Wedge compression fracture of first lumbar vertebra, initial encounter for closed fracture (principal); W17.89XA Other fall from one level to another, initial encounter
CPT/HCPCS: 72131; 99284; A9270

== ENCOUNTER 2024-06-14 19:23 | Emergency (ER) | payer MEDICARE, BC, SELFPAY ==
[2024-06-14 19:30] VITALS: BP 137/74; PULSE 73; RESP 16; TEMP 35.8; O2SAT 97; BMI 28.4
--- NOTE | 2024-06-14 19:36 | ED.GENADULT ---
HPI - General Adult General Chief complaint: Fall/Minor Trauma Stated complaint: fall on cement, disoriented Time Seen by Provider: 06/14/24 19:40 History of Present Illness HPI narrative: Yesterday pt was walking in the parking lot when he tripped on a curb and landed on cement. Did hit head, denies LOC or blood thinners. Today, feeling more unsteady and lightheaded . Reporting LEFT shoulder pain. Most of the history is obtained from pt's . 79-year-old man presenting to the emergency department with spouse with concern of confusion. Yesterday was walking in a parking lot tripping on a curb landing on the cement. does report there was a bump on his head for while which has gone down. There was no loss conscious. Is not anticoagulated. Underlying history of unspecified cognitive impairment though with [employer] lymphoma and difficulty with balance, deconditioning. Today feels more unsteady lightheaded. Did have some left shoulder area pain bowels demonstrates the posterior aspect which apparently has improved. Denies back and neck pain. No abdominal pain. No fever. Mentions on a numerous occasions high struggles with memory. Related Data Home Medications ?Medication ?Instructions ?Recorded ?Confirmed amlodipine 5 mg tablet 5 mg PO DAILY 04/24/23 06/14/24 ibrutinib 560 mg tablet 560 mg PO DAILY 04/24/23 06/14/24 pantoprazole 40 mg tablet,delayed 40 mg PO DAILY 04/24/23 06/14/24 release ursodiol 500 mg tablet 500 mg PO BID 04/24/23 06/14/24 ascorbic acid (vitamin C) 500 mg 500 mg PO DAILY 04/25/23 06/14/24 tablet cholecalciferol (vitamin D3) 50 50 mcg PO DAILY 04/25/23 06/14/24 mcg (2,000 unit) tablet (Vitamin D3) fluticasone propionate 50 1 spray intranasal DAILY 04/25/23 06/14/24 mcg/actuation nasal spray,suspension (24 Hour Allergy Relief) metoprolol succinate 100 mg 100 mg PO DAILY 04/25/23 06/14/24 tablet,extended release 24 hr tamsulosin 0.4 mg capsule 0.4 mg PO DAILY 04/25/23 06/14/24 trospium 20 mg tablet 20 mg PO QDAY 08/16/23 06/14/24 memantine 10 mg tablet 10 mg PO BID 06/14/24 06/14/24 trospium 60 mg capsule,extended 60 mg PO QAM 06/14/24 06/14/24 release 24 hr Previous Rx's ?Medication ?Instructions ?Recorded calcitonin (salmon) 200 1 spray intranasal (ALT) DAILY 05/19/24 unit/actuation nasal spray #3.7 mL oxycodone-acetaminophen 5 mg-325 1 tab PO TID PRN pain #10 tabs 05/19/24 mg tablet (Percocet) oxycodone 5 mg tablet 5 mg PO Q8H PRN pain #14 tabs 06/05/24 Allergies Allergy/AdvReac Type Severity Reaction Status Date / Time No Known Drug Allergies Allergy Verified 06/14/24 19:38 Review of Systems Status of ROS: Reports: 6 or more systems reviewed and unremarkable except as noted in History and below [facility] Medical History S/P radiation therapy ?Z92.3 - Personal history of irradiation (ICD-10) Status post stereotactic brain biopsy ?Z98.890 - Other specified postprocedural states (ICD-10) BPH (benign prostatic hyperplasia) ?N40.0 - Benign prostatic hyperplasia without lower urinary tract symptoms (ICD-10) Biliary cirrhosis ?K74.5 - Biliary cirrhosis, unspecified (ICD-10) Obesity ?E66.9 - Obesity, unspecified (ICD-10) Impairment of balance ?R26.89 - Other abnormalities of gait and mobility (ICD-10) Physical deconditioning ?R53.81 - Other malaise (ICD-10) Cognitive impairment ?R41.89 - Other symptoms and signs involving cognitive functions and awareness (ICD-10) [employer] lymphoma ?C85.89 - Other specified types of non-Hodgkin lymphoma, extranodal and solid organ sites (ICD-10) Surgical History H/O nasal polypectomy ?Z98.890 - Other specified postprocedural states (ICD-10) ?Z87.09 - Personal history of other diseases of the respiratory system (ICD-10) H/O blepharoplasty ?Z98.890 - Other specified postprocedural states (ICD-10) H/O colonoscopy ?Z98.890 - Other specified postprocedural states (ICD-10) Family History Father COPD (chronic obstructive pulmonary disease) Brother Prostate cancer Other Heart disease Social History Narrative: He lives in [place] with his . They live in their own home. He ambulates without a walker. He does not smoke. Drinks alcohol a couple times a week. Code status is on certain at this time. is healthcare power of attorney at law. What is your current living situation?: I presently have a place to live Problems where you live: no known problems Problems where you live details: none In the past 12 months, utilities in danger of being shut off: no In past 12 months, lack of transportation kept you from medical appts, meetings, work, or getting things needed for daily living: no In the past 12 mos, have been you worried that your food would run out before you had money to buy more?: never true In the past 12 mos, the food you bought just didn't last and you didn't have money to buy more?: never true Smoking Status: Never smoker Do you use any of these nicotine containing products: None Second hand tobacco smoke exposure: No How often do you have a drink containing alcohol: 2-4 times a month Alcohol type: beer How many standard drinks containing alcohol do you have on a typical day: 1 or 2 How often do you have six or more drinks on one occasion: Never AUDIT-C Alcohol total score: 2 Non-prescribed substance use: denies use Caffeine: Yes (Coffee) How often does anyone, including family, friends and others, physically hurt you: never How often does anyone, including family, friends and others, insult or talk down to you: never How often does anyone, including family, friends and others, threaten you with harm: never How often does anyone, including family, friends and others, scream or curse at you: never service: No Exam Narrative: Exam Narrative: Pleasant. Slightly blunted affect. Hard of hearing. Sitting in a wheelchair when I initially encounter Mr. Steele. Was just somewhat incontinent of urine and is being changed. Head looks to be atraumatic although maybe a little prominence in the left occipital area apparently where bump was. Wearing hearing aids. No Gilmore sign. Neck is supple without tenderness. Back is without tenderness as well no deformity he does however have a light abrasion in the midthoracic spine centrally. Heart in regular rate and rhythm. Lungs are clear. Raises his arms over his head without difficulty. No pain to palpation over the clavicles or shoulder. No swelling or erythema. No injuries apparent to the lower extremities. No abdominal pain palpation. Soft. Const: Vital Signs, click to edit/add: Vital Signs - 24 hr 06/14/24 19:30 06/14/24 20:30 Temperature 96.5 F L Pulse Rate [Pulse Oximeter] 73 Pulse Rate [orthos tatic lying] 67 Pulse Rate [orthos tatic sitting] 81 Pulse Rate [orthos tatic standing] 82 Respiratory Rate 16 Blood Pressure [Ri ght Upper Arm] 137/74 Blood Pressure [or thostatic lying] 129/68 Blood Pressure [or thostatic sitting] 110/97 H Blood Pressure [or thostatic standing ] 116/65 Pulse Oximetry 97 Oxygen Delivery Me thod Room Air Documenting provider has reviewed patient's vital signs: yes Course Vital Signs Vital signs: Initial Vital Signs Temperature 96.5 F L 06/14/24 19:30 Temperature Source Temporal Artery Scan 06/14/24 19:30 Pulse Rate 73 06/14/24 19:30 Pulse Rhythm Regular 06/14/24 19:30 Pulse Strength 3+ Normal 06/14/24 19:30 Respiratory Rate 16 06/14/24 19:30 Blood Pressure 137/74 06/14/24 19:30 Blood Pressure Mean 95 06/14/24 19:30 Blood Pressure Position Sitting 06/14/24 19:30 Pulse Oximetry 97 06/14/24 19:30 Oxygen Delivery Method Room Air 06/14/24 19:30 Vital Signs Temperature 96.5 F L 06/14/24 19:30 Pulse Rate 73 06/14/24 19:30 Respiratory Rate 16 06/14/24 19:30 Blood Pressure 137/74 06/14/24 19:30 Pulse Oximetry 97 06/14/24 19:30 Oxygen Delivery Method Room Air 06/14/24 19:30 Temperature 96.5 F L 06/14/24 19:30 Pulse Rate 67 06/14/24 20:30 Respiratory Rate 16 06/14/24 19:30 Blood Pressure 129/68 06/14/24 20:30 Pulse Oximetry 97 06/14/24 19:30 Oxygen Delivery Method Room Air 06/14/24 19:30 Medical Decision Making MDM Narrative Medical decision making narrative: Look for evidence of infection. Certainly this could be concussive symptomatology on top of already somewhat frail condition considering past medical including [employer] lymphoma. Will need to image head. Try to encourage hydration here today. Demonstrates normal orthostatics and reportedly asymptomatic. Head CT reviewed by me looks to show chronic changes; no acute abnormalities. Labs are reassuring including urinalysis. He Ambulated with walker quite quickly and stable around the emergency department. Drink a couple arch glasses of water. Seems to have a little more energy. Further conversation does reveal rather poor night of sleep last night. Up at least 10 times probably more. Spouse appears reassured after prior concerns. EKG reviewed by me shows normal sinus rhythm rate of 70. There are no acute ischemic changes. See patient discharge plan for further discussion Medical Records Medical records reviewed: Yes I reviewed the patient's medical records Lab Data Lab results reviewed: Yes I reviewed the patient's lab results Labs: Lab Results 06/14/24 06/14/24 Range/Units 19:49 19:58 WBC 6.75 (4.50-11.00) K/uL RBC 4.39 (4.30-5.90) m/uL Hgb 13.8 (13.5-17.5) gm/dL Hct 41.5 (37.0-53.0) % MCV 95 (80-100) fL MCH 31 (26-34) pg MCHC 33 (32-36) gm/dL RDW Coeff of Jacque 13.0 (11.5-15.5) % Plt Count 266 (140-440) K/uL Neut % (Auto) 54.8 (42.0-72.0) % Lymph % (Auto) 29.8 (20-44) % Frio % (Auto) 10.4 (0.0-11.0) % Eos % (Auto) 4.3 (0.0-7.0) % Baso % (Auto) 0.3 (0.0-3.0) % Neut # (Auto) 3.70 (1.7-7.0) K/uL Lymph # (Auto) 2.01 (0.90-2.90) K/uL Frio # (Auto) 0.70 (0.00-0.90) K/UL Eos # (Auto) 0.29 (0.00-0.50) K/uL Baso # (Auto) 0.02 (0.00-0.30) K/uL Abs Immat Gran (auto) 0.03 (0.00-0.30) K/uL Imm/Tot Granulo (auto) 0.4 % Sodium 140 (135-149) mmol/L Potassium 3.8 (3.6-5.1) mmol/L Chloride 107 (96-114) mmol/L Carbon Dioxide 25 (20-32) mmol/L Anion Gap 8 (7-15) mEq/L BUN 25 (7-30) mg/dL Creatinine 1.0 (0.5-1.5) mg/dL Estimated Creat Clear 59.82 Estimated GFR 76 ml/min Glucose 94 (60-115) mg/dL Calcium 9.3 (8.4-10.6) mg/dL Magnesium 1.9 (1.5-2.6) mg/dL C-Reactive Protein < 0.5 L (0.5-1.0) mg/dL Urine Color Yellow (Yellow) Urine Appearance Clear (Clear) Urine pH 5.5 (5.0-8.5) Ur Specific [place] 1.010 (1.000-1.030) Urine Protein Negative (Negative) Urine Glucose (UA) Negative (Negative) Urine Ketones Negative (Negative) Urine Blood Negative (Negative) Urine Nitrite Negative (Negative) Urine Bilirubin Negative (Negative) Urine Urobilinogen 0.2 (0.2-1.0) Ur Leukocyte Esterase Negative (Negative) Urine RBC 0-2 (0-2) Urine WBC 0-2 (0-5) Ur Squamous Epith Cells None (None-Few) Urine Bacteria None (None) SARS-CoV-2 (PCR) Negative SARS-CoV-2 (Negative) Influenza Type A (PCR) Negative PCR FLU A (Negative) Influenza Type B (PCR) Negative PCR FLU B (Negative) Discharge Plan Discharge Clinical Impression: Weakness, Discoordination, Closed head injury Patient Disposition: Home w/ Parent or Adult Condition: Improved Additional Instructions: Please continue to take care with transitions. Over the next few days at least be sure to keep your walker close by and use it. Try to stay well hydrated over the next couple of days in particular. Radiology has seen your head CT and is in agreement that there is nothing new going on there has far as we can tell in the CT scan. While you are little bit more complicated, signs or symptoms of a concussion might be nausea or headache upon exertion which can also be an indication to back off that level of activity and reassess in a week.? Concussion can also be represented by smoldering nausea or smoldering headache, difficulty with concentration, mood lability, general somnolence, sense of persistent fog or dizziness/lightheadedness.? If these symptoms are becoming apparent and continuing beyond 7-10 days, be re-evaluated for further recommendations. Prescriptions: No Action trospium 20 mg tablet 20 mg PO QDAY Rx Instructions: administer on an empty stomach oxycodone 5 mg tablet 5 mg PO Q8H PRN (Reason: pain) Qty: 14 0RF oxycodone-acetaminophen [Percocet] 5-325 mg tablet 1 tab PO TID PRN (Reason: pain) Qty: 10 0RF calcitonin (salmon) 200 unit/actuation spray,non-aerosol 1 spray intranasal (ALT) DAILY Qty: 3.7 2RF memantine 10 mg tablet 10 mg PO BID trospium 60 mg capsule,extended release 24hr 60 mg PO QAM amlodipine 5 mg tablet 5 mg PO DAILY pantoprazole 40 mg tablet,delayed release (DR/EC) 40 mg PO DAILY ursodiol 500 mg tablet 500 mg PO BID ibrutinib 560 mg tablet 560 mg PO DAILY Hold Instructions: Resume on 05/09/23. stop this dose. Hold this medication until you package pick up the new dose, 420mg from your pharmacy. ascorbic acid (vitamin C) 500 mg tablet 500 mg PO DAILY cholecalciferol (vitamin D3) [Vitamin D3] 50 mcg (2,000 unit) tablet 50 mcg PO DAILY fluticasone propionate [24 Hour Allergy Relief] 50 mcg/actuation spray,suspension 1 spray intranasal DAILY Rx Instructions: administer into each nostril metoprolol succinate 100 mg tablet extended release 24 hr 100 mg PO DAILY tamsulosin 0.4 mg capsule 0.4 mg PO DAILY Follow Up/Referrals: Silvestre Kennedy MD [Primary Care Provider] - Stand Alone Forms: [employer] Info Instructions
--- NOTE | 2024-06-14 19:48 | CRLHL7_ITS ---
For Patients: As a result of the Century Cures Act, medical imaging exams and procedure reports are released immediately into your electronic medical record. You may view this report before your referring provider. If you have questions, please contact your health care provider. INDICATION: Fall. TECHNIQUE: CT of the head without contrast. Coronal and sagittal reformats are included. COMPARISON: Brain MRI from 07/30/2023. FINDINGS: No acute intracranial hemorrhage. No mass effect or midline shift. No hydrocephalus or extra-axial collections. Postsurgical changes of right parietal craniotomy and subjacent right parietal resection cavity. Surrounding edema/gliosis. Mild ex vacuo dilatation of the right lateral ventricular atrium. 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 Scattered white matter hypoattenuation, typical for chronic microvascular ischemic change. No hydrocephalus. No acute osseous abnormalities. Postop changes paranasal sinuses. Right-sided partial mastoid effusion. Paranasal sinus mucosal thickening. Normal soft tissues. IMPRESSION: 1. No acute intracranial pathology. Please note that all CT scans at this facility use dose modulation, iterative reconstruction, and/or weight-based dosing when appropriate to reduce radiation dose to as low as reasonably achievable. Dictated by He Escalante MD @ 06/14/2024 9:16:11 PM (Electronically Signed)
--- OUTSIDE RECORDS SUMMARY | 2024-06-14 19:58 | XMS_ITS | Clinical Summary ---
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 Developer Name Role Phone Estivne Smyth MD Primary Care Provider Allergies No known active allergies Medications Medication Sig Dispensed Refills Start Date End Date Status metoprolol tartrate (LOPRESSOR) 100 MG tablet Take 100 mg by mouth daily Active pantoprazole (PROTONIX) 40 MG EC tablet Take 40 mg by mouth daily Active tamsulosin (FLOMAX) 0.4 MG capsule Take 0.4 mg by mouth daily Active aspirin 81 MG EC tablet Take 81 mg by mouth daily Active vitamin E (TOCOPHEROL) 1000 units (450 mg) capsule Take 500 Units by mouth daily Active vitamin D3 (CHOLECALCIFEROL) 2000 units (50 mcg) tablet Take 1 tablet by mouth daily Active [place]-3 Fatty Acids (FISH OIL) 500 MG CAPS Ac tive Social History Tobacco Use Types Packs/Day Years Used Date Smoking Tobacco: Never Assessed Sex and Gender Information Value Date Recorded Sex Assigned at Not on file Gender Identity Not on file Sexual Orientation Not on file Last Filed Vital Signs Vital Sign Reading Time Taken Comments Blood Pressure 138/89 05/27/2019 12:00 PM CDT Pulse 70 05/27/2019 12:00 PM CDT Temperature - - Respiratory Rate 16 05/27/2019 12:00 PM CDT Oxygen Saturation 99% 05/27/2019 12:00 PM CDT Inhaled Oxygen Concentration - - Weight - - Height - - Body Mass Index - - Plan of Treatment Not on file Care Teams [employer] D[employer] Developer Relationship Specialty Start Date End Date Estiven Smyth MD [facility] [address] [place] [address] PCP - General Emergency Medicine 05/27/19
--- OUTSIDE RECORDS SUMMARY | 2024-06-14 19:58 | XMS_ITS | Clinical Summary ---
Author Organization [facility] Address [place], [place] [address] Care Team Providers Care Hand Clipper Name Role Phone Silvestre Kennedy MD Primary Care Provider [phone] Allergies No known active allergies Medications Medication Sig Dispensed Refills Start Date End Date Status Ursodiol 500 mg tablet Take 500 mg by mouth 2 times daily. Active fluticasone (50 mcg per actuation) nasal solution (FLONASE) Inhale 1 [place] to both nostrils once daily if needed for Rhinitis. Active sodium chloride (Deep Sea Nasal [place]) 0.65 % nasal solution Inhale 1 [place] into affected nostril(s) once daily. 1 spray into each nostril daily (before fluticasone/Flon ase) Active tamsulosin (FLOMAX) 0.4 mg capsuleIndications:Be nign prostatic hyperplasia, unspecified whether lower urinary tract symptoms present Take 1 Capsule (0.4 mg) by mouth once daily after a meal. 90 Capsule 3 02/07/2023 Active multivit,thx,calcium, iron,mins (MULTIVITAMIN AND MINERAL ORAL) Take by mouth. Active trospium 60 mg Extended-Release capsule Take 60 mg by mouth once daily before a meal. Active metoprolol succinate (TOPROL XL) 100 mg Sustained-Release tabletIndications:Ess ential hypertension Take 1 Tablet (100 mg) by mouth once daily. 90 Tablet 3 02/12/2024 Active pantoprazole (PROTONIX) 40 mg delayed-release tabletIndications:DANIELLE D without esophagitis Take 1 Tablet (40 mg) by mouth once daily. 90 Tablet 3 02/12/2024 Active memantine (NAMENDA) 10 mg tabletIndications:Mod erate dementia without behavioral disturbance (HC) Take 1 Tablet (10 mg) by mouth two times daily. 180 Tablet 3 02/12/2024 Active amLODIPine (NORVASC) 5 mg tabletIndications:Ess ential hypertension Take 1 Tablet (5 mg) by mouth once daily. 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 Dr. Nunez to [place] [facility]. Biliary cirrhosis 12/25/2020 BPH (benign prostatic hyperplasia) 12/25/2020 [employer] lymphoma 12/25/2020 Overview: MOCA . OT states he should not drive or manage finances or manage medications Confusion 12/25/2020 Nasal polyps 11/18/2014 Tinnitus 11/18/2014 Personal history of colonic polyps 05/15/2014 Overview: Colonoscopy 05/2014 diverticulosis repeat in 5 years Impaired fasting glucose 09/24/2013 GERD (gastroesophageal reflux disease) 3 Encounters Date Type Department Care Team Description 06/05/2024 Orders Only [facility] Scanner 1 scan: (1-Ord) [facility], XR LUMBAR SPINE 2-3V, 06/05/2024 05/19/2024 Orders Only [facility] Scanner 1 scan: (1-Ord) [facility], LUMBAR SPINE W/O CONTRAST, 05/19/2024 04/30/2024 1:45 PM CDT Ancillary Procedure [facility] [address] [facility] [address] 04/30/2024 1:00 PM CDT Office Visit [facility] [address] [place] [address] Aretha Mcgrath MD Penis/Scrotum Problem (testicle pain redness and swelling for 3 days. ) 04/30/2024 Travel 04/07/2024 Telephone [facility] [address] [place] [address] Silvestre Kennedy MD Referral (Audiological Evaluation) 04/02/2024 10:15 AM CDT Ancillary Procedure [facility] [address] [place] [id number] 04/02/2024 Travel 03/31/2024 9:00 AM CDT Orders Only [facility] [address] [facility] [place] [address] Lab, [place] [facility] 03/31/2024 Travel from Last 3 Months Immunizations Name Administration Dates Next Due COVID-19 vaccine (Pfizer-Bio NTech 30mcg/0.3mL) 12YO+ BIVALENT PF, MDV 08/21/2022 COVID-19 vaccine (Pfizer-Bio NTech 30mcg/0.3mL) 12YO+ SUELLEN-SUCROSE PF, MDV 02/06/2022 COVID-19 vaccine (Pfizer-BioNTech 30mcg/0.3mL) P F, MDV 12/14/2020,11/23/2020 Influenza Virus, Unspecified 07/15/2015 Influenza, High-dose Inactivated 08/09/2017,02/0 01/2015 Influenza, High-dose Quadrivalent Inactivated ,07/17/2022 Influenza, IIV4 06/15/2021 Influenza, Inactivated IIV3 (Age 65+ Years) Preserv Free 07/28/2020,06/18/2019 Pneumococcal Poly,23-Valent (Pneumovax) 09/24/20 13 Pneumococcal conj 13-Valent (Prevnar 13) 015 RSV, Recombinant ADJ Reconst ituted (Arexvy 120MCG/0.5mL) 10/23/2023 Td (Age >=7 Years) 05/01/2018,08/15/2000 Td, Preservative Free (age >= 7 Years) 8 Tdap 09/26/2011 Zoster (Shingrix-RZV, recombinant) 11/21/2018, Zoster (Zostavax-ZVL, live) 09/20/2015 Family History Medical History Relation Name Comments Cancer-prostate Brother Winnie surgery, xrt Other Brother [place] knee arthritis COPD Father of this at age 82 Other Mother of old age at 100 Cancer-colon Neg. 1 Diabetes Neg. 2 Scoliosis Sister 1 Lacie Heart Disease Sister 2 Sailaja Relation Name Status Comments Brother [place] Alive Father Mother Neg. 1 Neg. 2 Sister 1 Lacie Alive Sister 2 Sailaja Alive Social History Tobacco Use Types Packs/Day Years Used Date Smoking Tobacco: Never Smokeless Tobacco: Never Tobacco Cessation:Counseling Given: Yes Alcohol Use Standard Drinks/Week Comments Yes 0 (1 standard drink = 0.6 oz pur e alcohol) see screening PHQ-2 Answer Date Recorded PHQ-2 TOTAL SCORE 0 02/12/2024 Social Connections Answer Date Recorded Frequency of Communication with Friends and Fami ly 0 04/30/2024 Alcohol Use Answer Date Recorded How often do you have a drink containing alcohol ? 2 02/12/2024 How many drinks containing a lcohol do you have on a typical day when you are drinking? 0 02/12/2024 How often do you have five or more drinks on one occasion? 0 02/12/2024 Financial Resource Strain Answer Date R ecorded Difficulty of Paying Living Expenses 3 04/30/2024 Difficulty of Paying Living Expenses Not on file 04/30/2024 Food Insecurity Answer Date Recorded Worried About Running Out of Food in the Last Ye ar 1 04/30/2024 Transportation Needs Answer Date Record ed Lack of Transportation (Medical) 1 04/30/2024 Housing Stability Answer Date Recorded Unable to Pay for Housing in the Last Year 1 04/30/2024 Sex and Gender Information Value Date Recorded Sex Assigned at Not on file Gender Identity Not on file Sexual Orientation Not on file Obstetrics History Last Filed Vital Signs Vital Sign Reading Time Taken Comments Blood Pressure 145/76 04/30/2024 1:01 PM CDT Pulse 68 04/30/2024 1:01 PM CDT Temperature 36.2 ??C (97.2 ??F) 12/11/2022 9:57 AM CS T Respiratory Rate 16 03/22/2023 9:28 AM CDT Oxygen Saturation 99% 04/30/2024 1:01 PM CDT Inhaled Oxygen Concentration - - Weight 89.4 kg (197 lb) 02/12/2024 10:33 AM CDT Height 173.7 cm (5' 8.39) 02/12/2024 10:33 AM C DT Body Mass Index 29.62 02/12/2024 10:33 AM CDT Plan of Treatment Health Maintenance Due Date Last Done Comments COVID-19 vaccine series ( season) 2023 08/10/2023, 08/21/2022, 02/06/2022, Additional history exists Influenza for age 65+ 06/15/2024 08/10/2023 , 07/17/2022, 06/15/2021, Additional history exists BMI (ht and wt on same day) for age 18+ 02/11/2025 02/12/2024, 02/07/2023, 11/19/2015 Depression screening for age 12+ 02/11/2025 02/12/2024, 02/07/2023, 12/11/2022, Additional history exists Medicare Wellness for age 65+ 02/12/2025, 02/07/2023, 11/19/2015, Additional history exists Tetanus booster 05/01/2028 05/01/2018, 04/14, 09/26/2011, Additional history exists Tdap Completed 09/26/2011 Pneumococcal series for age 65+ Completed 5, 09/24/2013 Zoster (shingles) series for age 50+ Completed 11/21/2018, 08/01/2018, 09/20/2015 Medical Devices Implanted Type Area Asphalt Engineer Device Identifier Shelf Expiration Date Model / Serial / Lot Screw Neuro 4mm Matrixneuro Slf Drill Titnm - [id number] Implanted:Qty: 4 on 12/30/2020 by Andrew Mendoza MBChB at [facility] N/A: [employer] CMF [id number] 4.01 / / [place] Hole Cover Neuro 24mm Synthes Low Pro Titin - [id number] Implanted:Qty: 1 on 12/30/2020 by Andrew Mendoza MBC at [facility] N/A: [employer] CMF [id number] / / Procedures Procedure Name Priority Date/Time Associated Diagnosis Comments SCAN-RADIOLOGY REPORT 06/05/2024 12:00 AM CDT SCAN-CT INTERPRETATION 12:00 AM CDT US SCROTUM WITH DUPLEX STAT 2:21 PM CDT Epididymitis URINALYSIS MICROSCOPIC Routine 1:30 PM CDT Epididymitis URINE CULTURE Routine 04/30/2024 1:30 PM CDT Epididymitis UA W/ SEDIMENT EXAM REFLEXED PER CRITERIA Routine 04/30/2024 1:30 PM CDT Epididymitis MR HEAD BRAIN WWO Routine 04/02/2024 10: 56 AM CDT [employer] lymphoma (HC) CBC WITH AUTO DIFFERENTIAL Routine 03/31/2024 9:08 AM CDT [employer] lymphoma (HC) COMP METABOLIC PANEL Routine 03/31/2024 9:08 AM CDT [employer] lymphoma (HC) CBC WITH AUTO DIFFERENTIAL Routine 03/31/2024 9:08 AM CDT [employer] lymphoma (HC) from Last 3 Months Results * SCAN-RADIOLOGY REPORT (06/05/2024 12:00 AM CDT) Anatomical Region Laterality Modality Other Scanner OTHER * SCAN-CT INTERPRETATION (05/19/2024 12:00 AM CDT) Anatomical Region Laterality Modality Other Scanner OTHER * US SCROTUM W DUPLEX (04/30/2024 2:21 PM CDT) Anatomical Region Laterality Modality SCROTUM, TESTES Ultrasound 04/30/2024 2:45 PM CDT Narrative 04/30/2024 2:45 PM CDT For Patients: ??As a result of the Cures Act, medical imaging exams and procedure reports are released immediately into your electronic medical record. ??You may view this report before your referring provider. ??If you have questions, please contact your health care provider. Indication: Epididymitis, left scrotal pain Technique: Multiple transverse and sagittal grayscale, color, and spectral Doppler sonographic images of the scrotum were obtained. Comparison: None. Findings: Right scrotum: ?? Testis measurements: 4.6 x 3.5 x 2.1 cm. Testis appearance: Normal. No intratesticular masses. Color and spectral Doppler tracings: Normal. Epididymis: Scattered calcifications. Other: No hydrocele or varicocele. Left scrotum: Testis measurements: 3.8 x 2.4 x 1.6 cm. Testis appearance: Normal. No intratesticular masses. Color and spectral Doppler tracings: Normal. Epididymis: Scattered calcifications. Mildly enlarged with increased blood flow. Other: No hydrocele or varicocele. Impression: 1. Mildly enlarged and hyperemic left epididymis, which is compatible with epididymitis. 2. Scattered bilateral epididymal calcifications may represent chronic epididymitis or history of trauma. Dictated by Domo Mejía MD @ 04/30/2024 2:45:15 PM (Electronically Signed) Procedure Note Alexei Mejía MD - 04/30/2024 For Patients: As a result of the Cures Act, medical imagingexams and procedure reports are released immediately into your electronicmedical record. You may view this report before your referring provider.If you have questions, please contact your health care provider. Indication: Epididymitis, left scrotal pain Technique: Multiple transverse and sagittal grayscale, color, and spectral Dopplersonographic images of the scrotum were obtained. Comparison: None. Findings: Right scrotum: Testis measurements: 4.6 x 3.5 x 2.1 cm. Testis appearance: Normal. No intratesticular masses. Color and spectral Doppler tracings: Normal. Epididymis: Scattered calcifications. Other: No hydrocele or varicocele. Left scrotum: Testis measurements: 3.8 x 2.4 x 1.6 cm. Testis appearance: Normal. No intratesticular masses. Color and spectral Doppler tracings: Normal. Epididymis: Scattered calcifications. Mildly enlarged with increased bloodflow. Other: No hydrocele or varicocele. Impression: 1. Mildly enlarged and hyperemic left epididymis, which is compatible withepididymitis. 2. Scattered bilateral epididymal calcifications may represent chronicepididymitis or history of trauma. Dictated by Domo Mejía MD @ 04/30/2024 2:45:15 PM (Electronically Signed) Aretha Mcgrath MD US * URINALYSIS MICROSCOPIC (04/30/2024 1:30 PM CDT) RBC 0-2 0-2, None Seen /HPF 04/30/2024 1:43 PM CDT [facility] WBC None Seen 0-2, 3-5, None Seen /HPF 04/30/2024 1:43 PM CDT [facility] BACTERIA None Seen None Seen, Rare, Few Bacteria/ HPF 04/30/2024 1:43 PM CDT [facility] EPITHELIAL CELLS None Seen None Seen, Few Epi/HPF 04/30/2024 1:43 PM CDT [facility] Urine URINE SPECIMEN / Unknown Non-Blood / Unknown 04/30/2024 1:30 PM CDT 04/30/2024 1:36 PM CDT Aretha Mcgrath MD URINE [facility] [address] [place] [address], * URINE CULTURE (04/30/2024 1:30 PM CDT) CULTURE No growth (<1,000 CFU/mL) 05/01/2024 8:13 PM CDT [facility] Urine URINE SPECIMEN / Unknown Non-Blood / Unknown 04/30/2024 1:30 PM CDT 04/30/2024 1:36 PM CDT Aretha Mcgrath MD MICROBIOLO GY [facility] [address] [place] [address], [place] * (ABNORMAL) UA W/ SEDIMENT EXAM REFLEXED PER CRITERIA (04/30/2024 1:30 PM CDT) COLOR Yellow Yellow Color 04/30/2024 1:42 PM CDT [facility] CLARITY Clear Clear Clarity 04/30/2024 1:42 PM CDT [facility] SPECIFIC GRAVITY,URINE 1.010 1.010, 1.015, 1.020, 1.025 04/30/2024 1:42 PM CDT [facility] PH,URINE 7.0 6.0, 7.0, 8.0, 5.5, 6.5, 7.5, 8.5 04/30/2024 1:42 PM CDT [facility] UROBILINOGEN, QUALITATIVE Normal Normal EU/dl 04/30/2024 1:42 PM CDT [facility] PROTEIN, URINE Negative Negative mg/dL 04/30/2024 1:42 PM CDT [facility] GLUCOSE, URINE Negative Negative mg/dL 04/30/2024 1:42 PM CDT [facility] KETONES,URINE Negative Negative mg/dL 04/30/2024 1:42 PM CDT [facility] BILIRUBIN,URI NE Negative Negative 04/30/2024 1:42 PM CDT [facility] OCCULT BLOOD,URINE Trace(A) Negative 04/30/2024 1:42 PM CDT [facility] NITRITE Negative Negative 04/30/2024 1:42 PM CDT [facility] LEUKOCYTE ESTERASE Negative Negative 04/30/2024 1:42 PM CDT [facility] Urine URINE SPECIMEN / Unknown Non-Blood / Unknown 04/30/2024 1:30 PM CDT 04/30/2024 1:36 PM CDT Aretha Mcgrath MD URINE [facility] [address] [place] [address], * MR HEAD BRAIN WWO (04/02/2024 10:56 AM CDT) Anatomical Region Laterality Modality BRAIN, HEAD Magnetic Resonan ce 04/02/2024 10:5 6 AM CDT Impressions 04/02/2024 12:47 PM CDT 1. ??Stable ill-defined enhancement within the right parietal and occipital lobes. This may represent posttreatment related change or residual residual/recurrent malignancy. Recommend continued follow-up. 2. ??No evidence of acute cranial hemorrhage, mass effect, or infarction. Narrative 04/02/2024 12:47 PM CDT For Patients: As a result of the Cures Act, medical imaging exams and procedure reports are released immediately into your electronic medical record. You may view this report before your referring provider. If you have questions, please contact your health care provider. EXAM: MR HEAD BRAIN WWO LOCATION: [facility] DATE: 04/02/2024 INDICATION: Commodity Merchant Lymphoma (hc) COMPARISON: 10/26/23 CONTRAST: Clariscan 20ml TECHNIQUE: Routine multiplanar multisequence head MRI without and with intravenous contrast. FINDINGS: INTRACRANIAL CONTENTS: No abnormal restricted diffusion to suggest acute infarct. Ill-defined enhancement within the right right parietal and occipital lobes which is similar to prior examination. No new abnormal brain parenchymal or leptomeningeal enhancement. Scattered foci of signal abnormality within the cerebral hemispheric white matter which are nonspecific, though most commonly ascribed to chronic small vessel ischemic disease. Encephalomalacia within the right anterior temporal lobe, unchanged. The ventricles and sulci are prominent consistent with moderate brain parenchymal volume loss. No evidence of acute intracranial hemorrhage, mass effect, or extra-axial collection. No cerebellar tonsillar ectopia. SELLA: No abnormality accounting for technique. OSSEOUS STRUCTURES/SOFT TISSUES: The visualized skull base and calvarium are unremarkable. Expected signal voids within the distal vertebral, basilar, and bilateral internal carotid arteries. ORBITS: No abnormality accounting for technique. SINUSES/MASTOIDS: Moderate mucosal thickening maxillary sinuses bilaterally with air-fluid levels which could represent acute sinusitis in the appropriate clinical setting. Right mastoid and middle ear effusion. The left mastoid air cells are unremarkable. Procedure Note Nikolai Espinoza MD - 04/02/2024 For Patients: As a result of the Cures Act, medical imagingexams and procedure reports are released immediately into your electronicmedical record. You may view this report before your referring provider.If you have questions, please contact your health care provider. EXAM: MR HEAD BRAIN WWO LOCATION: [facility] DATE: 04/02/2024 INDICATION: Commodity Merchant Lymphoma (hc) COMPARISON: 10/26/23 CONTRAST: Clariscan 20ml TECHNIQUE: Routine multiplanar multisequence head MRI without and withintravenous contrast. FINDINGS: INTRACRANIAL CONTENTS: No abnormal restricted diffusion to suggest acuteinfarct. Ill-defined enhancement within the right right parietal andoccipital lobes which is similar to prior examination. No new abnormalbrain parenchymal or leptomeningeal enhancement. Scattered foci of signalabnormality within the cerebral hemispheric white matter which arenonspecific, though most commonly ascribed to chronic small vesselischemic disease. Encephalomalacia within the right anterior temporallobe, unchanged. The ventricles and sulci are prominent consistent withmoderate brain parenchymal volume loss. No evidence of acute intracranialhemorrhage, mass effect, or extra-axial collection. No cerebellartonsillar ectopia. SELLA: No abnormality accounting for technique. OSSEOUS STRUCTURES/SOFT TISSUES: The visualized skull base and calvariumare unremarkable. Expected signal voids within the distal vertebral,basilar, and bilateral internal carotid arteries. ORBITS: No abnormality accounting for technique. SINUSES/MASTOIDS: Moderate mucosal thickening maxillary sinusesbilaterally with air-fluid levels which could represent acute sinusitis inthe appropriate clinical setting. Right mastoid and middle ear effusion.The left mastoid air cells are unremarkable. IMPRESSION: 1. Stable ill-defined enhancement within the right parietal and occipitallobes. This may represent posttreatment related change or residualresidual/recurrent malignancy. Recommend continued follow-up. 2. No evidence of acute cranial hemorrhage, mass effect, or infarction. Jabier Harkins MD MR * (ABNORMAL) CBC WITH AUTO DIFFERENTIAL (03/31/2024 9:08 AM CDT) WHITE BLOOD COUNT 6.6 4.5 - 11.0 thou/cu mm 03/31/2024 9:18 AM CDT [facility] RED BLOOD COUNT 4.24(L) 4.30 - 5.90 mil/cu mm 03/31/2024 9:18 AM CDT [facility] HEMOGLOBIN 13.5 13.5 - 17.5 g/dL 03/31/2024 9:18 AM CDT [facility] HEMATOCRIT 39.6 37.0 - 53.0 % 03/31/2024 9:18 AM CDT [facility] MCV 93 80 - 100 fL 03/31/2024 9:18 AM CDT [facility] MCH 31.8 26.0 - 34.0 pg 03/31/2024 9:18 AM CDT [facility] MCHC 34.1 32.0 - 36.0 g/dL 03/31/2024 9:18 AM CDT [facility] RDW 13.2 11.5 - 15.5 % 03/31/2024 9:18 AM CDT [facility] PLATELET COUNT 297 140 - 440 thou/cu mm 03/31/2024 9:18 AM CDT [facility] MPV 8.6 6.5 - 11.0 fL 03/31/2024 9:18 AM CDT [facility] % NEUT 55.3 % 03/31/2024 9:18 AM CDT [facility] % LYMPH 28.7 % 03/31/2024 9:18 AM CDT [facility] % MONO 11.1 % 03/31/2024 9:18 AM CDT [facility] % EOS 4.4 % 03/31/2024 9:18 AM CDT [facility] % BASO 0.5 % 03/31/2024 9:18 AM CDT [facility] ABSOLUTE NEUTROPHILS 3.6 1.7 - 7.0 thou/cu mm 03/31/2024 9:18 AM CDT [facility] ABSOLUTE LYMPHOCYTES 1.9 0.9 - 2.9 thou/cu mm 03/31/2024 9:18 AM CDT [facility] ABSOLUTE MONOCYTES 0.7 <0.9 thou/cu mm 03/31/2024 9:18 AM CDT [facility] ABSOLUTE EOSINOPHILS 0.3 <0.5 thou/cu mm 03/31/2024 9:18 AM CDT [facility] ABSOLUTE BASOPHILS 0.0 <0.3 thou/cu mm 03/31/2024 9:18 AM CDT [facility] Blood BLOOD SPECIMEN / Unknown Venipuncture / Unknown 03/31/2024 9:08 AM CDT 03/31/2024 9:08 AM CDT Narrative [facility] - 03/31/2024 9:18 AM CDT This testing was ordered by an outside provider. The provider who placed this order has reviewed and approved it for completion by the lab, but is not involved in this patient's care related to the ordering of this lab. The lab will provide the testing results for CDF and CMP, to the outside ordering provider, Jabier Harkins at fax number [phone], for that provider to inform and arrange appropriate follow up with the patient. Sarah Rosa ML[facility] ([facility]................... ??02/21/2024 ?? 10:54 AM Silvestre Kennedy MD HEMATOLOGY [facility] [address] [place] [address], * (ABNORMAL) COMP METABOLIC PANEL (03/31/2024 9:08 AM CDT) SODIUM 142 136 - 145 mmol/L 03/31/2024 7:00 PM CDT [facility] POTASSIUM 4.6 3.5 - 5.1 mmol/L 03/31/2024 7:00 PM CDT [facility] CHLORIDE 107 98 - 107 mmol/L 03/31/2024 7:00 PM [facility] CO2,TOTAL 24 22 - 29 mmol/L 03/31/2024 7:00 PM [facility] ANION GAP 11 5 - 18 03/31/2024 7:00 PM [facility] GLUCOSE 95 70 - 99 mg/dL 03/31/2024 7:00 PM [facility] CALCIUM 9.5 8.8 - 10.2 mg/dL 03/31/2024 7:00 PM [facility] BUN 21 8 - 23 mg/dL 03/31/2024 7:00 PM [facility] CREATININE 1.16 0.70 - 1.20 mg/dL 03/31/2024 7:00 PM [facility] BUN/CREAT RATIO 18 10 - 20 7:00 PM [facility] eGFR 63(L) >90 mL/min/1.7 3m2 03/31/2024 7:00 PM [facility] Comment:As of 2021, eG FR is calculated by the CKD-EPI creatinine equation without race adjustment. ??eGFR can be influenced by muscle mass, exercise, and diet. ??The reported eGFR is an estimation only and is only applicable if the renal function is stable. ALBUMIN 4.0 4.0 - 4.9 g/dL 03/31/2024 7:00 PM [facility] PROTEIN,TOTAL 6.6 6.0 - 8.0 g/dL 03/31/2024 7:00 PM [facility] BILIRUBIN,TOTAL 0.4 0.0 - 1.2 mg/dL 03/31/2024 7:00 PM [facility] ALK PHOSPHATASE 114 40 - 129 IU/L 03/31/2024 7:00 PM [facility] ALT (SGPT) 13 10 - 50 IU/L 03/31/2024 7:00 PM [facility] AST (SGOT) 16 10 - 50 IU/L 03/31/2024 7:00 PM CDT [facility] Blood BLOOD SPECIMEN / Unknown Venipuncture / Unknown 03/31/2024 9:08 AM CDT 03/31/2024 9:08 AM CDT Silvestre Kennedy MD CHEMISTRY [facility] [address] [place] [address], from Last 3 Months Additional Health Concerns Infection Onset Date Last Indicated COVID History Comment:Patient had positive COVID test on 12/29/2020 Patient met COVID clearance criteria on 01/09/2021. Patient no longer requires enhanced respiratory precautions. It is not recommended to collect additional COVID-19 tests until 90 days have passed since first positive test. Exception: patient develops new COVID-19 symptoms. 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 Treatment Guidelines 08/24/2023 Healthcare Directive 03/25/2021 11:00 AM P [employer] WORKER SIGNED 11/17/2010 Healthcare Directive 11/20/2014 10:18 AM ARLYN ANNE, 01/23/2013 * Full Code (Latest Code Status on File) Date Activated Date Inactivated Comments 04/25/2021 12:29 PM 05/01/2021 4:55 PM Question Answer Comments Code Status Discussion: Discussed * Full Code Date Activated Date Inactivated Comments 03/22/2021 10:04 AM 03/27/2021 2:00 PM Question Answer Comments Code Status Discussion: Per Existing Order * Full Code Date Activated Date Inactivated Comments 03/04/2021 12:54 PM 03/08/2021 4:32 PM Question Answer Comments Code Status Discussion: Discussed * Full Code Date Activated Date Inactivated Comments 02/11/2021 9:04 AM 02/17/2021 2:50 PM Question Answer Comments Code Status Discussion: Discussed * Full Code Date Activated Date Inactivated Comments 01/21/2021 3:07 PM 01/27/2021 2:49 PM Question Answer Comments Code Status Discussion: Not Discussed Care Teams Hand Clipper Relationship Specialty Start Date End Date [place] [address] [address] PCP - General Family Practice 12/04/22
--- OUTSIDE RECORDS SUMMARY | 2024-06-14 19:58 | XMS_ITS | Referral Summary ---
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
[2024-06-14 20:05] LABS: Appearance Urine Clear (Clear); Bilirubin Urine Negative (Negative); Blood Urine Negative (Negative); Color Urine Yellow (Yellow); Glucose Urine Negative (Negative); Ketones Urine Negative (Negative); Leukocyte Esterase Urine Negative (Negative); Nitrite Urine Negative (Negative); Protein Urine Negative (Negative); Urobilinogen Urine 0.2 (0.2-1.0); pH Urine 5.5 (5.0-8.5)
[2024-06-14 20:06] LABS: Basophils Absolute Auto 0.02 K/uL (0.00-0.30); Basophils Percent Auto 0.3 % (0.0-3.0); Eosinophils Absolute Auto 0.29 K/uL (0.00-0.50); Eosinophils Percent Auto 4.3 % (0.0-7.0); Hematocrit 41.5 % (37.0-53.0); Hemoglobin* 13.8 gm/dL (13.5-17.5); Immature Granulocytes Abs Auto 0.03 K/uL (0.00-0.30); Immature Granulocytes Pct Auto 0.4 %; Lymphocytes Absolute Auto 2.01 K/uL (0.90-2.90); Lymphocytes Percent Auto 29.8 % (20-44); Mean Corpuscular HGB Conc 33 gm/dL (32-36); Mean Corpuscular Hemoglobin 31 pg (26-34); Mean Corpuscular Volume 95 fL (80-100); Monocytes Percent Auto 10.4 % (0.0-11.0); Neutrophils Percent Auto 54.8 % (42.0-72.0); Platelet Count* 266 K/uL (140-440); Red Blood Count 4.39 m/uL (4.30-5.90); White Blood Count* 6.75 K/uL (4.50-11.00)
[2024-06-14 20:09] LABS: Slide Review Reflex No
[2024-06-14 20:11] LABS: RBC Urine 0-2 (0-2); WBC Urine 0-2 (0-5)
[2024-06-14 20:18] LABS: Chloride* 107 mmol/L (96-114); Potassium* 3.8 mmol/L (3.6-5.1); Sodium* 140 mmol/L (135-149)
[2024-06-14 20:21] LABS: Anion Gap 8 mEq/L (7-15); Blood Urea Nitrogen* 25 mg/dL (7-30); Carbon Dioxide* 25 mmol/L (20-32); Est. Creatinine Clearance* 59.82; Estimated Glomerular Filt Rate 76 ml/min
[2024-06-14 20:22] LABS: Calcium* 9.3 mg/dL (8.4-10.6); Glucose* 94 mg/dL (60-115)
[2024-06-14 20:26] LABS: Magnesium* 1.9 mg/dL (1.5-2.6)
[2024-06-14 20:30] VITALS: BP 110/97; BP 116/65; BP 129/68; PULSE 67; PULSE 81; PULSE 82
[2024-06-14 20:33] LABS: PCR FLU A Negative PCR FLU A (Negative); PCR FLU B Negative PCR FLU B (Negative); SARS PCR* Negative SARS-CoV-2 (Negative)
[2024-06-14 20:42] LABS: C Reactive Protein* < 0.5 mg/dL (0.5-1.0)
== END 2024-06-14 21:32 | disposition home or self-care (01) ==
PROVIDERS: Emergency Provider Family Medicine; PCP Family Medicine
DX: S09.90XA Unspecified injury of head, initial encounter (principal); R53.1 Weakness; R27.9 Unspecified lack of coordination; W01.0XXA Fall on same level from slipping, tripping and stumbling without subsequent striking against object, initial encounter
CPT/HCPCS: 36415; 70450; 80048; 81001; 83735; 85025; 86140; 87631; 93005; 99284

== ENCOUNTER 2024-08-08 10:25 | Emergency (ER) | payer MEDICARE, BC, SELFPAY ==
[2024-08-08 10:38] VITALS: BP 130/79; PULSE 75; RESP 18; TEMP 36.9; O2SAT 95
--- NOTE | 2024-08-08 11:50 | ED.GENADULT ---
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 He follows with [facility], Dr. Harkins and is not currently on any treatment. He is scheduled for a 3 month surveillance brain MRI on Sunday) cognitive impairment (apparently related to his brain radiation for the lymphoma), hypertension, previous L1 compression fracture, BPH, previous kidney injury, biliary cirrhosis, PVCs, tinnitus. According to records from [facility] Medications Amlodipine 5 mg Metoprolol XL 100 mg daily Namenda 10 mg Pantoprazole 40 mg daily tamsulosin 0.4 mg daily Ursodiol 500 mg Fluticasone nasal spray It looks like his most recent visit with the [facility] was actually in April for scrotal pain. Urinalysis was normal. Ultrasound showed epididymitis. Treated with levofloxacin. It also looks like he follows with [facility] for his lymphoma. There is a scanned in visit note from [facility] in [facility]. However I am not able to view the scanned document and when I try to open it, it causes the [facility] to crash. History from the patient is somewhat limited because of his memory impairment history. provides most of his history. She notes that he has had some gait instability for the past several months. Gait has been more unstable for the past couple of weeks. No falls. Since about Sunday or perhaps about a week he has had trouble with weakness and clumsiness of his left hand and left leg. Gait is definitely been more unsteady. He notes that he has been having trouble with his zipper and grant buttons. Symptoms are not really progressing, but they are not getting better. have been trying to give him some electrolyte drinks thinking that might help his left hand get stronger. His left-sided weakness is been bothering his this week. She sent a chart message to his primary care provider at [facility] yesterday. Apparently today the [facility] nurse called back and told them to come to the ER. They came to the ER as per directions. He is not really having any new or progressing symptoms today. Related Data Home Medications ?Medication ?Instructions ?Recorded ?Confirmed amlodipine 5 mg tablet 5 mg PO DAILY 04/24/23 08/08/24 pantoprazole 40 mg tablet,delayed 40 mg PO DAILY 04/24/23 08/08/24 release ursodiol 500 mg tablet 500 mg PO BID 04/24/23 08/08/24 ascorbic acid (vitamin C) 500 mg 500 mg PO DAILY 04/25/23 07/03/24 tablet cholecalciferol (vitamin D3) 50 50 mcg PO DAILY 04/25/23 07/03/24 mcg (2,000 unit) tablet (Vitamin D3) fluticasone propionate 50 1 spray intranasal DAILY 04/25/23 08/08/24 mcg/actuation nasal spray,suspension (24 Hour Allergy Relief) metoprolol succinate 100 mg 100 mg PO DAILY 04/25/23 08/08/24 tablet,extended release 24 hr tamsulosin 0.4 mg capsule 0.4 mg PO DAILY 04/25/23 08/08/24 memantine 10 mg tablet 10 mg PO BID 06/14/24 08/08/24 trospium 60 mg capsule,extended 60 mg PO QAM 06/14/24 08/08/24 release 24 hr Previous Rx's ?Medication ?Instructions ?Recorded calcitonin (salmon) 200 1 spray intranasal (ALT) DAILY 05/19/24 unit/actuation nasal spray #3.7 mL dexamethasone 4 mg tablet 4 mg PO Q6H #20 tabs 08/08/24 Allergies Allergy/AdvReac Type Severity Reaction Status Date / Time No Known Drug Allergies Allergy Verified 08/08/24 10:38 [facility] Medical History S/P radiation therapy ?Z92.3 - Personal history of irradiation (ICD-10) Status post stereotactic brain biopsy ?Z98.890 - Other specified postprocedural states (ICD-10) BPH (benign prostatic hyperplasia) ?N40.0 - Benign prostatic hyperplasia without lower urinary tract symptoms (ICD-10) Biliary cirrhosis ?K74.5 - Biliary cirrhosis, unspecified (ICD-10) Obesity ?E66.9 - Obesity, unspecified (ICD-10) Impairment of balance ?R26.89 - Other abnormalities of gait and mobility (ICD-10) Physical deconditioning ?R53.81 - Other malaise (ICD-10) Cognitive impairment ?R41.89 - Other symptoms and signs involving cognitive functions and awareness (ICD-10) FORKLIFT TECHNICIAN lymphoma ?C85.89 - Other specified types of non-Hodgkin lymphoma, extranodal and solid organ sites (ICD-10) Surgical History H/O nasal polypectomy ?Z98.890 - Other specified postprocedural states (ICD-10) ?Z87.09 - Personal history of other diseases of the respiratory system (ICD-10) H/O blepharoplasty ?Z98.890 - Other specified postprocedural states (ICD-10) H/O colonoscopy ?Z98.890 - Other specified postprocedural states (ICD-10) Family History Father COPD (chronic obstructive pulmonary disease) Brother Prostate cancer Other Heart disease Social History Narrative: He lives in [place] with his . They live in their own home. He ambulates without a walker. He does not smoke. Drinks alcohol a couple times a week. Code status is on certain at this time. is healthcare power of professional advisor. What is your current living situation?: I presently have a place to live Problems where you live: no known problems Problems where you live details: none In the past 12 months, utilities in danger of being shut off: no In past 12 months, lack of transportation kept you from medical appts, meetings, work, or getting things needed for daily living: no In the past 12 mos, have been you worried that your food would run out before you had money to buy more?: never true In the past 12 mos, the food you bought just didn't last and you didn't have money to buy more?: never true Smoking Status: Never smoker Do you use any of these nicotine containing products: None Second hand tobacco smoke exposure: No How often do you have a drink containing alcohol: 2-4 times a month Alcohol type: beer How many standard drinks containing alcohol do you have on a typical day: 1 or 2 How often do you have six or more drinks on one occasion: Never AUDIT-C Alcohol total score: 2 Non-prescribed substance use: denies use Caffeine: Yes (Coffee) How often does anyone, including family, friends and others, physically hurt you: never How often does anyone, including family, friends and others, insult or talk down to you: never How often does anyone, including family, friends and others, threaten you with harm: never How often does anyone, including family, friends and others, scream or curse at you: never service: No Exam Narrative: Exam Narrative: Constitutional: Appears well-developed and well-nourished. Alert. Conversant. Non toxic. HENT: Head: Atraumatic. Nose: Nose normal. Mouth/Throat: Oral mucosa is clear and moist. no trismus. Pharynx normal. Tonsils symmetric. No tonsillar enlargement, erythema, or exudate. Eyes: Conjunctivae normal. EOM normal. Pupils equal, round, and reactive to light. No scleral icterus. Neck: Normal range of motion. Neck supple. No tracheal deviation present. Cardiovascular: Normal rate, regular rhythm. No gallop. No friction rub. No murmur heard. Symmetric radial artery pulses Pulmonary/Chest: Effort normal. No stridor. No respiratory distress. No wheezes. No rales. No rhonchi . No tenderness. Abdominal: Soft. Bowel sounds normal. No distension. No mass. No tenderness. No rebound. No guarding. Musculoskeletal: RUE: Normal range of motion. No tenderness. No deformity LUE: Normal range of motion. No tenderness. No deformity RLE: Normal range of motion. No edema. No tenderness. No deformity LLE: Normal range of motion. No edema. No tenderness. No deformity Lymph: No cervical adenopathy. Neurological: Mental status normal. Attention normal. Alert and oriented x3. GCS 15. Memory somewhat impaired and he is not a reliable historian. He is pleasant and cooperative and follows commands appropriately. I see him walking in the hallway from the bathroom back to his bed. Gait is slow but steady. No ataxia.. Speech fluent. Allowing for poor memory,c ognition normal. Cranial Nerves intact II-XII except I did not formally test gag or visual acuity. EOMI. Palate elevates symmetrically and tongue protrudes in the midline. Strength: Strength is 5/5 on the right side including the deltoid, biceps, triceps, procurement forester, thumb extension, finger extension, psoas, quadriceps, hamstring, gastrocnemius, tibialis anterior. Strength is 5/5 on the left in the deltoid, biceps, triceps. He has 4/5 strength on the left procurement forester, finger extension, thumb extension. 4/5 strength on the left knee psoas, quad, hamstring, gastroc. Strength 5/5 in the right lower extremity. Sensation intact to light touch in both upper extremities (C4-T1) Sensation intact to light touch in Both lower extremities (L4-S1). Finger to nose and coordination normal. Gait slow but normal. Skin: Skin is warm and dry. No rash noted. No pallor. Normal capillary refill. Psychiatric: Normal mood. Normal affect. Polite. Const: Vital Signs, click to edit/add: Vital Signs - 24 hr 08/08/24 10:38 08/08/24 16:02 08/08/24 16:03 Temperature 98.5 F Pulse Rate 65 72 Pulse Rate [Pulse Oximeter] 75 Respiratory Rate 18 Blood Pressure 144/75 H 144/74 H Blood Pressure [Ri ght Upper Arm] 130/79 Pulse Oximetry 95 99 100 Oxygen Delivery Me thod Room Air Course Vital Signs Vital signs: Initial Vital Signs Temperature 98.5 F 08/08/24 10:38 Temperature Source Temporal Artery Scan 08/08/24 10:38 Pulse Rate 75 08/08/24 10:38 Respiratory Rate 18 08/08/24 10:38 Blood Pressure 130/79 08/08/24 10:38 Blood Pressure Mean 96 08/08/24 10:38 Blood Pressure Position Sitting 08/08/24 10:38 Pulse Oximetry 95 08/08/24 10:38 Oxygen Delivery Method Room Air 08/08/24 10:38 Vital Signs Temperature 98.5 F 08/08/24 10:38 Pulse Rate 75 08/08/24 10:38 Respiratory Rate 18 08/08/24 10:38 Blood Pressure 130/79 08/08/24 10:38 Pulse Oximetry 95 08/08/24 10:38 Oxygen Delivery Method Room Air 08/08/24 10:38 Temperature 98.5 F 08/08/24 10:38 Pulse Rate 72 08/08/24 16:03 Respiratory Rate 18 08/08/24 10:38 Blood Pressure 144/74 H 08/08/24 16:03 Pulse Oximetry 100 08/08/24 16:03 Oxygen Delivery Method Room Air 08/08/24 10:38 Medications Administered Medications: Discontinued Medications Generic Name Dose Route Start Last Admin Trade Name Cynthia PRN Reason Stop Dose Admin Dexamethasone 4 mg 08/08/24 19:01 08/08/24 19:19 Dexamethasone 4 Mg Tablet PO 08/08/24 19:02 4 mg ONCE ONE Administration Medical Decision Making MDM Narrative Medical decision making narrative: 79-year-old gentleman with a history of FORKLIFT TECHNICIAN lymphoma status post brain radiation therapy done about a year ago, now thought to be in remission and not currently on any treatment. He has symptoms since last year including some cognitive impairment, some chronic gait instability over the summer that is gotten worse over the past few weeks. Also for the past 1 week (or maybe 2 weeks) he has had new development of left-sided weakness, more affecting his left upper extremity than his left lower extremity. His weakness is been stable for the past several days. He is actually scheduled for an outpatient brain MRI next Sunday. However his contacted his primary care office today and they insisted that he come to the ER today. His symptoms are not really progressing today versus yesterday but they came because of their primary care recommendation Noncontrast head CT is obtained to look for intracranial hemorrhage or other explanation for his left-sided weakness and is fortunately normal. Laboratory workup does not show any explanation for weakness. Sodium, electrolytes, blood sugar normal. EKG nonischemic and troponin negative. Urinalysis normal. Brain MRI is obtained and does show progression of a ring-enhancing wheezing in the right occipital lobe and some other T2 FLAIR intensities which are concerning for recurrence or progression of his FORKLIFT TECHNICIAN lymphoma. Discussed with the on-call on provider for [facility], by phone. The patient has no history of diabetes, HIV, a.m. her immunosuppression to raise concern for brain infections causing the rim enhancing lesion. This is suspected to be probable progression of FORKLIFT TECHNICIAN lymphoma. Oncology recommends that we start him on Decadron 4 mg 4 times daily over the weekend. They will follow-up with him in clinic on Sunday. They do not feel he needs immediate admission today since he is not really having any progressive symptoms over the past couple of days. Discussed the plan of care in detail with the patient and his . They are very thrilled that he does not have to be hospitalized. They strongly prefer discharge home for now. However I discussed the risk of progressing symptoms and worsening illness and precautions for return to the ER. They are in agreement. Provided with digital copies of their brain MRI and CT so they can bring them with them to their oncologist visit on Sunday. Oncology also says he has had previous radiation therapy through the [facility] system and request that we push images to the [facility] pacs. This is done today as well. Lab Data Labs: Lab Results 08/08/24 Range/Units 11:20 WBC 5.90 (4.50-11.00) K/uL RBC 4.22 L (4.30-5.90) m/uL Hgb 13.3 L (13.5-17.5) gm/dL Hct 40.2 (37.0-53.0) % MCV 95 (80-100) fL MCH 32 (26-34) pg MCHC 33 (32-36) gm/dL RDW Coeff of Jacque 12.8 (11.5-15.5) % Plt Count 235 (140-440) K/uL Neut % (Auto) 52.5 (42.0-72.0) % Lymph % (Auto) 33.6 (20-44) % Mcleod % (Auto) 10.5 (0.0-11.0) % Eos % (Auto) 2.4 (0.0-7.0) % Baso % (Auto) 0.7 (0.0-3.0) % Neut # (Auto) 3.10 (1.7-7.0) K/uL Lymph # (Auto) 1.98 (0.90-2.90) K/uL Mcleod # (Auto) 0.60 (0.00-0.90) K/UL Eos # (Auto) 0.14 (0.00-0.50) K/uL Baso # (Auto) 0.04 (0.00-0.30) K/uL Abs Immat Gran (auto) 0.02 (0.00-0.30) K/uL Imm/Tot Granulo (auto) 0.3 % INR 1.02 (0.91-1.10) Sodium 136 (135-149) mmol/L Potassium 4.1 (3.6-5.1) mmol/L Chloride 103 (96-114) mmol/L Carbon Dioxide 24 (20-32) mmol/L Anion Gap 9 (7-15) mEq/L BUN 26 (7-30) mg/dL Creatinine 1.1 (0.5-1.5) mg/dL Estimated GFR 67 ml/min Glucose 90 (60-115) mg/dL Calcium 9.3 (8.4-10.6) mg/dL Troponin I < 0.01 L (0.01-0.04) ng/mL Urine Color Yellow (Yellow) Urine Appearance Clear (Clear) Urine pH 6.0 (5.0-8.5) Ur Specific Ocate 1.015 (1.000-1.030) Urine Protein Negative (Negative) Urine Glucose (UA) Negative (Negative) Urine Ketones Negative (Negative) Urine Blood Negative (Negative) Urine Nitrite Negative (Negative) Urine Bilirubin Negative (Negative) Urine Urobilinogen 0.2 (0.2-1.0) Ur Leukocyte Esterase Negative (Negative) Urine RBC 0-2 (0-2) Urine WBC 0-2 (0-5) Ur Squamous Epith Cells None (None-Few) Urine Bacteria None (None) Imaging Data CT scan - head: Attestation: I have reviewed the pertinent imaging results. Radiologist's impression: IMPRESSION: No acute intracranial hemorrhage or evident mass effect. MRI brain: Attestation: I have reviewed the pertinent imaging results. Radiologist's impression: Impression: 1. Interval increase in size of rim enhancing lesion within the right occipital lobe. Increasing T2 FLAIR hyperintensity in the surrounding parenchyma. Recurrent or progressing FORKLIFT TECHNICIAN lymphoma cannot be excluded. 2. Stable encephalomalacia and gliosis involving the right temporal lobe. ECG Data Attestation: I personally reviewed and interpreted this ECG as follows: Interpretation: Normal sinus rhythm Rate: 65 TX: 200 QRS axis: Normal axis. No pathologic Q-waves. ST segment/T wave: No ST segment elevation or depression QTc: 422 Discharge Plan Discharge Clinical Impression: FORKLIFT TECHNICIAN lymphoma, Left-sided weakness Instructions: Weakness (ED) Additional Instructions: As we discussed, please come back to the ER right away if you have any worsening weakness, trouble walking, headache, or any other problems. Please start on the new medication, Decadron and take it 4 times daily this week and as directed by your oncologist. You do not have to go for your MRI which had been scheduled for Sunday. Instead you will receive a phone call from your oncologist Sunday morning to have an appointment on Sunday to recheck for your lymphoma. Activity Level: No Restrictions Discharge Diet: Regular Prescriptions: New dexamethasone 4 mg tablet 4 mg PO Q6H Qty: 20 0RF No Action calcitonin (salmon) 200 unit/actuation spray,non-aerosol 1 spray intranasal (ALT) DAILY Qty: 3.7 2RF memantine 10 mg tablet 10 mg PO BID trospium 60 mg capsule,extended release 24hr 60 mg PO QAM amlodipine 5 mg tablet 5 mg PO DAILY pantoprazole 40 mg tablet,delayed release (DR/EC) 40 mg PO DAILY ursodiol 500 mg tablet 500 mg PO BID ascorbic acid (vitamin C) 500 mg tablet 500 mg PO DAILY cholecalciferol (vitamin D3) [Vitamin D3] 50 mcg (2,000 unit) tablet 50 mcg PO DAILY fluticasone propionate [24 Hour Allergy Relief] 50 mcg/actuation spray,suspension 1 spray intranasal DAILY Rx Instructions: administer into each nostril metoprolol succinate 100 mg tablet extended release 24 hr 100 mg PO DAILY tamsulosin 0.4 mg capsule 0.4 mg PO DAILY Follow Up/Referrals: Silvestre Kennedy MD [Primary Care Provider] - Stand Alone Forms: [facility] Info Instructions
--- NOTE | 2024-08-08 12:11 | CRLHL7_ITS ---
For Patients: As a result of the Century Cures Act, medical imaging exams and procedure reports are released immediately into your electronic medical record. You may view this report before your referring provider. If you have questions, please contact your health care provider. INDICATION: LEFT ARM AND LEG WEAKNESS FOR 5 DAYS, HISTORY OF ACID DUMPER LYMPHOMA. TECHNIQUE: CT head without contrast. COMPARISON: CT brain dated 06/14/2024. FINDINGS: CSF spaces: Within normal limits for age. Brain parenchyma and extra-axial spaces: Redemonstrated patchy cerebral parenchymal hypodensity and regions of encephalomalacia, as previously characterized. No new territorial loss of mendez-white differentiation to suggest an interval acute transcortical infarction. No acute intracranial hemorrhage or evident mass effect. Skull base and calvarium: Moderate right mastoid effusion. The visualized orbits are grossly unremarkable. No skull fractures. IMPRESSION: No acute intracranial hemorrhage or evident mass effect. Please note that all CT scans at this facility use dose modulation, iterative reconstruction, and/or weight-based dosing when appropriate to reduce radiation dose to as low as reasonably achievable. Dictated by Rafael Gómez MD @ 08/08/2024 1:14:39 PM (Electronically Signed)
[2024-08-08 12:42] LABS: Basophils Absolute Auto 0.04 K/uL (0.00-0.30); Basophils Percent Auto 0.7 % (0.0-3.0); Eosinophils Absolute Auto 0.14 K/uL (0.00-0.50); Eosinophils Percent Auto 2.4 % (0.0-7.0); Hematocrit 40.2 % (37.0-53.0); Hemoglobin* 13.3 gm/dL (13.5-17.5); Immature Granulocytes Abs Auto 0.02 K/uL (0.00-0.30); Immature Granulocytes Pct Auto 0.3 %; Lymphocytes Absolute Auto 1.98 K/uL (0.90-2.90); Lymphocytes Percent Auto 33.6 % (20-44); Mean Corpuscular HGB Conc 33 gm/dL (32-36); Mean Corpuscular Hemoglobin 32 pg (26-34); Mean Corpuscular Volume 95 fL (80-100); Monocytes Percent Auto 10.5 % (0.0-11.0); Neutrophils Percent Auto 52.5 % (42.0-72.0); Platelet Count* 235 K/uL (140-440); RDW Coefficient of Variation % 12.8 % (11.5-15.5); Red Blood Count 4.22 m/uL (4.30-5.90)
[2024-08-08 12:43] LABS: Appearance Urine Clear (Clear); Bilirubin Urine Negative (Negative); Blood Urine Negative (Negative); Color Urine Yellow (Yellow); Glucose Urine Negative (Negative); Ketones Urine Negative (Negative); Leukocyte Esterase Urine Negative (Negative); Nitrite Urine Negative (Negative); Protein Urine Negative (Negative); Specific Gravity Urine 1.015 (1.000-1.030); Urobilinogen Urine 0.2 (0.2-1.0)
--- OUTSIDE RECORDS SUMMARY | 2024-08-08 12:53 | XMS_ITS | Clinical Summary ---
Author Organization [place] Address [address] [place] [id number] Care Team Providers Care Newspaper Correspondent Name Role Phone Estiven Smyth MD Primary Care Provider Allergies No known active allergies Medications metoprolol tartrate (LOPRESSOR) 100 MG tablet Take [...] Units by mouth daily Active vitamin D3 (CHOLECALCIFEROL ) 2000 units (50 mcg) tablet Take 1 tablet by mouth daily Active [place]-3 Fatty Acids (FISH OIL) 500 MG CAPS Active Social History Tobacco Use Types Packs/Day Years Used Date Smoking Tobacco: Never Assessed Sex and Gender Information Value Date Recorded Sex Assigned at Not on file Legal Sex Male 5:04 AM [employer] Gender Identity Not on file Sexual Orientation [...] - Plan of Treatment Not on file Insurance [facility] MEDICARE Care Teams Newspaper Correspondent Relationship Specialty Start Date End Date Estiven Smyth MD [facility] [address] [place] [address] PCP - General Emergency Medicine 05/27/19
--- OUTSIDE RECORDS SUMMARY | 2024-08-08 12:53 | XMS_ITS | Referral Summary ---
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
--- OUTSIDE RECORDS SUMMARY | 2024-08-08 12:53 | XMS_ITS | Clinical Summary ---
Author Organization [facility] Address [place], [place] [address] Care Team Providers Care Pigment Processor Name Role Phone Silvestre Kennedy MD Primary Care Provider +1- [phone] Allergies No known active allergies Medications Medication Sig Dispensed Refills Start Date End Date Status Ursodiol 500 mg tablet Take 500 mg by mouth 2 times daily. Active fluticasone (50 mcg per actuation) nasal solution (FLONASE) Inhale 1 [place] to both nostrils once daily if needed for Rhinitis. Active sodium chloride (Deep Sea Nasal [place]) 0.65 % nasal solution Inhale 1 [place] into affected nostril(s) once daily. 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 Dr. Nunez to [place] [facility]. Biliary cirrhosis 12/25/2020 BPH (benign prostatic hyperplasia) 12/25/2020 POWDERMAN lymphoma 12/25/2020 Overview (12/14/2023): MOCA . OT states he should not drive or manage finances or manage medications Confusion 12/25/2020 Nasal polyps 11/18/2014 Tinnitus 11/18/2014 Personal history of colonic polyps 05/15/2014 Overview (05/15/2014): Colonoscopy 05/2014 diverticulosis repeat in 5 years Impaired fasting glucose 09/24/2013 GERD (gastroesophageal reflux disease) 3 Encounters Date Type Department Care Team Description 08/08/2024 Nurse Triage [facility] [address] [place] [address] Silvestre Kennedy MD Extremity Weakness (Left hand) 07/22/2024 Orders Only [facility] Scanner 1 scan: (1-Ord) RC 07/22/2024 Orders Only [facility] Scanner 1 scan: (1-Ord) [facility] 07/14/2024 Transcribe Orders [facility] [address] [place] [address] Jabier Harkins MD 07/03/2024 Orders Only [facility] Scanner 1 scan: (1-Ord) [facility], LUMBAR SPINE 2-3 VIEW, 07/03/2024 06/14/2024 Orders Only [facility] Scanner 1 scan: (1-Ord) [place], HEAD/BRAIN, 06/14/2024 06/05/2024 Orders Only [facility] Scanner 1 scan: (1-Ord) [facility], XR LUMBAR SPINE 2-3V, 06/05/2024 05/19/2024 Orders Only [facility] Scanner 1 scan: (1-Ord) [facility], LUMBAR SPINE W/O CONTRAST, 05/19/2024 from Last 3 Months Immunizations Name Administration Dates Next Due COVID-19 vaccine (ClassLink-Acustream NTech 30mcg/0.3mL) 12YO+ BIVALENT PF, MDV 08/21/2022 COVID-19 vaccine (IBillionaire NTech 30mcg/0.3mL) 12YO+ SUELLEN-SUCROSE PF, MDV 02/06/2022 COVID-19 vaccine (IBillionaireNTP2Binvestor 30mcg/0.3mL) P F, MDV 12/14/2020,11/23/2020 Influenza Virus, Unspecified 07/15/2015 Influenza, High-dose Inactivated 08/09/2017,01/2015 Influenza, High-dose Quadrivalent Inactivated ,07/17/2022 Influenza, IIV4 [...] Cancer-prostate Brother Winnie surgery, xrt Other Brother Winnie knee arthritis COPD Father of this at age 82 Other Mother of old age at 100 Cancer-colon Neg. 1 Diabetes Neg. 2 Scoliosis Sister 1 Lacie Heart Disease Sister 2 Sailaja Relation Name Status Comments Brother Winnie Alive Father Mother Neg. 1 Neg. 2 [...] file 04/30/2024 Food Insecurity Answer Date Recorded Do you worry your food will run out before you are able to buy more? 1 04/30/2024 Transportation Needs Answer Date Record ed Lack of Transportation (Medical) 1 04/30/2024 Housing Stability Answer Date Recorded What is your housing situation today? 1 04/30/2024 Sex and Gender Information Value [...] 02/12/2024 10:33 AM CDT Plan of Treatment Upcoming Encounters Date Type Department Care Team (Late st Contact Info) Description 08/11/2024 7:15 AM CDT Ancillary Procedure [facility] [address] [place] [address] Health Maintenance Due Date Last Done Comments COVID-19 vaccine series ( season) 2024 08/10/2023, 08/21/2022, 02/06/2022, Additional history exists Influenza [...] for age 50+ Completed 11/21/2018, 08/01/2018, 09/20/2015 RSV vaccine for adults or Completed 10/23/2023 Medical Devices Implanted Type Area Annealing Furnace Tender Device Identifier Shelf Expiration Date Model / Serial / Lot Screw Neuro 4mm Matrixneuro Slf Drill [facility] - [id number] Implanted:Qty: 4 on 12/30/2020 by Andrew Mendoza MBChB at [facility] N/A: Cranium J And J Depuy CMF [id number] / / Vivi Hole Cover Neuro 24mm Synthes Low Pro Tital - [id number] Implanted:Qty: 1 on 12/30/2020 by Andrew Mendoza MBChB at [facility] N/A: Cranium J And J Depuy CMF [id number] / / Procedures Procedure Name Priority Date/Time Associated Diagnosis Comments SCAN-EYE EXAM 07/22/2024 12:00 AM CDT SCAN-EYE EXAM 07/22/2024 12:00 AM CDT SCAN-RADIOLOGY REPORT 07/03/2024 12:00 AM CDT SCAN-CT INTERPRETATION 12:00 AM CDT SCAN-RADIOLOGY REPORT 06/05/2024 12:00 AM CDT SCAN-CT INTERPRETATION 12:00 AM CDT from Last 3 Months Results * SCAN-EYE EXAM (07/22/2024 12:00 AM CDT) Scanner OTHER * SCAN-EYE EXAM (07/22/2024 12:00 AM CDT) Scanner OTHER * SCAN-RADIOLOGY REPORT (07/03/2024 12:00 AM CDT) Only the most recent of2 resultswithin the time period is included. Anatomical Region Laterality Modality Other Scanner OTHER * SCAN-CT INTERPRETATION (06/14/2024 12:00 AM CDT) Only the most recent of2 resultswithin the time period is included. 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
[2024-08-08 12:54] LABS: RBC Urine 0-2 (0-2); WBC Urine 0-2 (0-5)
[2024-08-08 13:07] LABS: Chloride* 103 mmol/L (96-114)
[2024-08-08 13:08] LABS: Potassium* 4.1 mmol/L (3.6-5.1); Sodium* 136 mmol/L (135-149)
[2024-08-08 13:10] LABS: Creatinine* 1.1 mg/dL (0.5-1.5); Estimated Glomerular Filt Rate 67 ml/min
[2024-08-08 13:11] LABS: Anion Gap 9 mEq/L (7-15); Blood Urea Nitrogen* 26 mg/dL (7-30); Calcium* 9.3 mg/dL (8.4-10.6); Carbon Dioxide* 24 mmol/L (20-32); Glucose* 90 mg/dL (60-115); INR 1.02 (0.91-1.10); Prothrombin Time 14.1 Seconds
[2024-08-08 13:20] LABS: Slide Review Reflex No
[2024-08-08 13:35] LABS: Troponin I* < 0.01 ng/mL (0.01-0.04)
--- NOTE | 2024-08-08 13:49 | CRLHL7_ITS ---
For Patients: As a result of the Century Cures Act, medical imaging exams and procedure reports are released immediately into your electronic medical record. You may view this report before your referring provider. If you have questions, please contact your health care provider. Indication: Weakness. Technique: Multiplanar, multisequence MRI of the brain was performed without and with intravenous contrast. Contrast: 15 cc Dotarem. Comparison: CT head 08/08/2024. MR brain 07/30/2023. MR brain 05/02/2023. Findings: Redemonstration of moderate size regions of encephalomalacia and gliosis involving the right superior and anterior temporal regions. There is a stable focus of T2 FLAIR hyperintensity within the paramedian right parietal lobe. Larger area of confluent T2 FLAIR hyperintensity within the right posterior parietal and occipital regions is mildly increased in the interval. There is interval increase in size of abnormal rim enhancing focus within the right occipital lobe, now measuring 2 x 2.2 cm (TR x CC) when previously measuring 1 by 1.3 cm. There is new gliosis associated with the previously noted abnormal enhancing focus in the right posteromedial frontal lobe. Stable region of hemosiderin deposition within the right occipital lobe. No parenchymal restricted diffusion. The ventricles appear stable in size and configuration. Fourth ventricle is midline. Orbits appear intact. Mild paranasal sinus mucosal disease. Mild mastoid effusions. Impression: 1. Interval increase in size of rim enhancing lesion within the right occipital lobe. Increasing T2 FLAIR hyperintensity in the surrounding parenchyma. Recurrent or progressing EVENT ATTENDANT lymphoma cannot be excluded. 2. Stable encephalomalacia and gliosis involving the right temporal lobe. Dictated by Patrick Mathew MD @ 08/08/2024 6:42:05 PM (Electronically Signed)
[2024-08-08 16:02] VITALS: BP 144/75; PULSE 65; O2SAT 99
[2024-08-08 16:03] VITALS: BP 144/74; PULSE 72; O2SAT 100
[2024-08-08] MEDS: dexAMETHasone 4 MG TABLET PO (19:19)
--- NOTE | 2024-08-08 20:01 | ED.NURSE ---
Pt was given a CD and paper copies of CT scan and MRI.
== END 2024-08-08 19:47 | disposition home or self-care (01) ==
PROVIDERS: Emergency Provider Emergency Medicine; PCP Family Medicine
DX: R53.1 Weakness (principal); C83.390 Primary central nervous system lymphoma
CPT/HCPCS: 36415; 70450; 70553; 80048; 81001; 84484; 85025; 85610; 93005; 99284; 99285; A9270; A9575

== ENCOUNTER 2024-08-24 01:03 | Outpatient (CLI) | payer MEDICARE, BC, SELFPAY ==
--- OUTSIDE RECORDS SUMMARY | 2024-09-10 09:08 | XMS_ITS | Referral Summary ---
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
--- OUTSIDE RECORDS SUMMARY | 2024-09-10 09:08 | XMS_ITS | Clinical Summary ---
Author Organization [facility] Address [place], [place] [address] Care Team Providers Care Rn Shift Mgr Name Role Phone Silvestre Kennedy MD Primary Care Provider +1- [phone] Allergies No known active allergies Medications Medication Sig Dispensed Refills Start Date End Date Status Ursodiol 500 mg tablet Take 500 mg by mouth 2 times daily. Active fluticasone (50 mcg per actuation) nasal solution (FLONASE) Inhale 1 [place] to both nostrils once daily if needed for Rhinitis. Active sodium chloride (Deep Sea Nasal [place]) 0.65 % nasal solution Inhale 1 [place] into affected nostril(s) once daily. 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 Dr. Nunez to [place] [facility]. Biliary cirrhosis 12/25/2020 BPH (benign prostatic hyperplasia) 12/25/2020 MATE FIRST lymphoma 12/25/2020 Overview (12/14/2023): MOCA . OT states he should not drive or manage finances or manage medications Confusion 12/25/2020 Nasal polyps 11/18/2014 Tinnitus 11/18/2014 Personal history of colonic polyps 05/15/2014 Overview (05/15/2014): Colonoscopy 05/2014 diverticulosis repeat in 5 years Impaired fasting glucose 09/24/2013 GERD (gastroesophageal reflux disease) 3 Encounters Date Type Department Care Team Description 08/11/2024 Orders Only [facility] [address] [place] [address] Jabier Harkins MD 2 scans: (2-Ord) [place], HEAD/BRAIN W/WO, 08/08/2024 08/08/2024 Orders Only [facility] Scanner 1 scan: (1-Ord) [place], HEAD/BRAIN WO CONTRAST, 08/08/2024 08/08/2024 Nurse Triage [facility] [address] [place] [address] Silvestre Kennedy MD Extremity Weakness (Left hand) 07/22/2024 Orders Only [facility] Scanner 1 scan: (1-Ord) RC 07/22/2024 Orders Only [facility] Scanner 1 scan: (1-Ord) [facility] 07/14/2024 Transcribe Orders [facility] [address] [place] [address] Jabier Harkins MD 07/03/2024 Orders Only [facility] Scanner 1 scan: (1-Ord) [facility], LUMBAR SPINE 2-3 VIEW, 07/03/2024 06/14/2024 Orders Only [facility] Scanner 1 scan: (1-Ord) [place], HEAD/BRAIN, 06/14/2024 from Last 3 Months Immunizations Name Administration Dates Next Due COVID-19 vaccine (YouFolio-Bio NTech 30mcg/0.3mL) 12YO+ BIVALENT PF, MDV 08/21/2022 COVID-19 vaccine (YouFolio-Bio NTech 30mcg/0.3mL) 12YO+ SUELLEN-SUCROSE PF, MDV 02/06/2022 COVID-19 vaccine (YouFolio-Athletes Recovery ClubNTPacer Electronics 30mcg/0.3mL) P F, MDV 12/14/2020,11/23/2020 Influenza Virus, Unspecified 07/15/2015 Influenza, High-dose Inactivated 08/09/2017,020 01/2015 Influenza, High-dose Quadrivalent Inactivated ,07/17/2022 Influenza, [...] Medical History Relation Name Comments Cancer-prostate Brother Engelhard surgery, xrt Other Brother Winnie knee arthritis COPD Father of this at age 82 Other Mother of old age at 100 Cancer-colon Neg. 1 Diabetes Neg. 2 Scoliosis Sister 1 Lacie Heart Disease Sister 2 Sailaja Relation Name Status Comments Brother Engelhard Alive Father Mother Neg. 1 Neg. 2 [...] 0 02/12/2024 Social Connections Answer Date Recorded Do you often feel lonely or isolated from those around you? 0 04/30/2024 Alcohol Use Answer Date Recorded [...] 04/30/2024 Transportation Needs Answer Date Record ed Does lack of transportation keep you from medica l appointments? 1 04/30/2024 Does lack of transportation keep you from work, meetings or getting things that you need? 1 04/30/2024 Housing Stability Answer Date Recorded [...] 68 04/30/2024 1:01 PM CDT Temperature 36.2 C (97.2 F) 12/11/2022 9:57 AM DIRECTOR OF MEDIA Respiratory Rate 16 03/22/2023 9:28 AM CDT [...] Completed 10/23/2023 Medical Devices Implanted Type Area Sports Marketing Coordinator Device Identifier Shelf Expiration Date Model / Serial / Lot Screw Neuro 4mm Matrixneuro Slf Drill [place] - [id number] Implanted:Qty: 4 on 12/30/2020 by Andrew Mendoza MBChB at [facility] N/A: Cranium J And J Depuy CMF [id number] 4.01 / / Vivi Hole Cover Neuro 24mm Synthes Low Pro [place] - [id number] Implanted:Qty: 1 on 12/30/2020 by Andrew Mendoza MBChB at [facility] N/A: Cranium J And J Depuy CMF [id number] / / Procedures Procedure Name Priority Date/Time Associated Diagnosis Comments MR HEAD BRAIN WWO Routine 08/08/2024 12: 00 AM CDT Primary MATE FIRST lymphoma SCAN-CT INTERPRETATION 12:00 AM CDT SCAN-EYE EXAM 07/22/2024 12:00 AM CDT SCAN-EYE EXAM 07/22/2024 12:00 AM CDT SCAN-RADIOLOGY REPORT 07/03/2024 12:00 AM CDT SCAN-CT INTERPRETATION 12:00 AM CDT from Last 3 Months Results * SCAN-CT INTERPRETATION (08/08/2024 12:00 AM CDT) Only the most recent of2 resultswithin the time period is included. Anatomical Region Laterality Modality Other Scanner OTHER * MR HEAD BRAIN WWO (08/08/2024 12:00 AM CDT) Anatomical Region Laterality Modality BRAIN, HEAD Magnetic Resonan ce Jabier Harkins MD MR * SCAN-EYE EXAM (07/22/2024 12:00 AM CDT) Scanner OTHER * SCAN-EYE EXAM (07/22/2024 12:00 AM CDT) Scanner OTHER * SCAN-RADIOLOGY REPORT (07/03/2024 12:00 AM CDT) Anatomical Region Laterality Modality [...] Documents on File Type Date Recorded Patient Property Staff Accountant Expl anation Treatment Guidelines 08/24/2023 Healthcare Directive 03/25/2021 11:00 AM Marilia [place] OF MENTAL HEALTH THERAPIST SIGNED 11/17/2010 Healthcare Directive 11/20/2014 10:18 AM [...] Code Status Discussion: Not Discussed Care Teams Rn Shift Mgr Relationship Specialty Start Date End Date Silvestre Kennedy MD [address] [place] [address] PCP - General Family Practice 12/04/22
--- OUTSIDE RECORDS SUMMARY | 2024-09-10 09:08 | XMS_ITS | Clinical Summary ---
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
== END 2024-08-24 01:04 | disposition home or self-care (01) ==
PROVIDERS: PCP Family Medicine; Visit Provider Family Medicine
DX: R53.1 Weakness (principal)
CPT/HCPCS: A0998